=== PATIENT | male | born 1970 | race Caucasian/White ===

== ENCOUNTER 2018-08-23 18:56 | Emergency (ER) | payer OTHER ==
[~2018-08-23] VITALS: Ht 175.3 cm; Wt 63.5 kg
--- NOTE | 2018-08-23 19:18 | ED Psychosocial ---
General Chief Complaint: Substance Abuse Stated Complaint: HEALTH EVAL Source: patient Exam Limitations: intoxication History of Present Illness Date Seen by Provider: August 23, 2018 Time Seen by Provider: 19:02 Initial Comments 48 yo M presenting with law enforcement for clearance for incarceration. He is under the influence of alcohol and had breathalyzer level of .272 for them. He had no medical complaints. He was anxious and nervous about being in custody. He had no other concerns. He was reversed about his poor dentition. He was also embarrassed about being here with alcohol on board. He denies having any fever or chills. He had no chest pain. He said he felt like he was short of breath and like he was having a need to move because he was anxious from being in custody. Allergies and Home Medications Allergies Coded Allergies: No Known Drug Allergies (Unverified , 08/23/18) Patient Home Medication List Home Medication List Reviewed: Yes Review of Systems Constitutional: no symptoms reported EENTM: see HPI (poor dentition) Respiratory: see HPI Cardiovascular: see HPI Gastrointestinal: no symptoms reported Genitourinary: no symptoms reported Musculoskeletal: no symptoms reported Skin: no symptoms reported Psychiatric/Neurological: Anxiety Past Iiehqrj-Foyemp-Txjzvx Hx Past Med/Social Hx: Reviewed Nursing Past Med/Soc Hx Patient Social History Recent Foreign Travel: No Contact w/Someone Who Travel: No Physical Exam Vital Signs - First Documented 08/23/18 19:01 Temp 98.4 Pulse 92 Resp 18 B/P (MAP) 128/71 (90) Pulse Ox 96 O2 Delivery Room Air Capillary Refill : Height, Weight, BMI Height: '" Weight: lbs. oz. kg; BMI Method: General Appearance: WD/WN, no apparent distress, other (anxious. poor dentition. rambling speech.) HEENT: PERRL/EOMI, other (widespread poor dentition) Neck: non-tender, full range of motion, supple Respiratory: chest non-tender, lungs clear, normal breath sounds, no respiratory distress, no accessory muscle use Cardiovascular: normal peripheral pulses, regular rate, rhythm Gastrointestinal: normal bowel sounds, soft, no pulsatile mass Extremities: normal range of motion, non-tender, normal inspection, normal capillary refill Neurologic/Psychiatric: alert, oriented x 3 Skin: normal color, warm/dry Progress/Results/Core Measures Results/Orders Vital Signs/I&O 08/23/18 08/23/18 19:01 19:24 Temp 98.4 98.4 Pulse 92 92 Resp 18 18 B/P (MAP) 128/71 (90) 128/71 (90) Pulse Ox 96 96 O2 Delivery Room Air Room Air Progress Progress Note : Progress Note Hemodynamically stable and no acute significant abnormality on exam. pt admits to alcohol use and does appear intoxicated. He has no acute medical complaints. Appears medically stable to go with law enforcement for incarceration Departure Impression Primary Impression: Alcohol intoxication Qualified Codes: F10.920 - Alcohol use, unspecified with intoxication, uncomplicated Additional Impression: Medical clearance for incarceration Disposition: HOME, SELF-CARE Condition: Stable Departure-Patient Inst. Decision time for Depature: 19:18 Referrals: NO,LOCAL PHYSICIAN (PCP) Primary Care Physician Patient Instructions: ALCOHOL AND SUBSTANCE ABUSE, Alcohol Abuse and Alcoholism (DC), Effects of Alcohol on Your Health Add. Discharge Instructions: Patient is medically stable to go with law enforcement for incarceration. Stop drinking and avoid drug use Establish care with clinic such as [facility] and they can help you with getting clean and healthy All discharge instructions reviewed with patient and/or family. Voiced understanding. VANNESSA JANG MD August 23, 2018 19:18
[2018-08-23 19:24] VITALS: BP 128/71
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
== END 2018-08-23 19:24 | disposition home or self-care (01) ==
LOC: ER FS 18:58
DX: F10.129 Alcohol abuse with intoxication, unspecified (principal); F41.9 Anxiety disorder, unspecified
CPT/HCPCS: 99283

== ENCOUNTER 2018-12-01 11:21 | Inpatient (IN) | payer SELFPAY ==
[~2018-12-01] VITALS: Ht 175.3 cm; Wt 66.9 kg
[2018-12-01] VITALS (10 sets, daily range): BP systolic 129–140; BP diastolic 83–101
[2018-12-01] MEDS ORDERED: NS IV 1000 ML 1,000 ML IV SCH (11:35)
[2018-12-01] MEDS ORDERED: NS IV 500 ML 500 ML IV ONE (11:35)
[2018-12-01] MEDS ORDERED: LORazepam 0.5 MG (ATIVAN) TABLET PO STA (11:35)
[2018-12-01] MEDS ORDERED: LORazepam INJ 2 MG/ML (ATIVAN) VIAL IVP ONE ×3 (11:45→13:15)
[2018-12-01] MEDS ORDERED: FOLIC ACID 1 MG TAB PO ONE (11:45)
[2018-12-01] MEDS ORDERED: THIAMINE 100 MG (VITAMIN B-1) TAB PO ONE (11:45)
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
[2018-12-01 12:07] LABS: BASOPHILS % (AUTO) 0 % (0-10); EOSINOPHILS % (AUTO) 0 % (0-10); HEMATOCRIT 45 % (40-54); HEMOGLOBIN 15.8 G/DL (13.3-17.7); LYMPHOCYTES # (AUTO) 1.4 X 10^3 (1.0-4.0); LYMPHOCYTES % (AUTO) 13 % (12-44); MEAN CORPUSCULAR HEMOGLOBIN 33 PG (25-34); MEAN CORPUSCULAR HGB CONC 35 G/DL (32-36); MEAN CORPUSCULAR VOLUME 94 FL (80-99); MEAN PLATELET VOLUME 9.6 FL (7.4-10.4); MONOCYTES # (AUTO) 0.4 X 10^3 (0.0-1.0); MONOCYTES % (AUTO) 4 % (0-12); NEUTROPHILS % (AUTO) 83 % (42-75); PLATELET COUNT 221 10^3/uL (130-400); RED CELL DISTRIBUTION WIDTH 12.9 % (10.0-14.5); WHITE BLOOD COUNT 10.8 10^3/uL (4.3-11.0)
[2018-12-01 12:24] LABS: BUN/CREATININE RATIO 8; CARBON DIOXIDE 12 MMOL/L (21-32); CHLORIDE 93 MMOL/L (98-107); CREATININE SERUM 1.01 MG/DL (0.60-1.30); GFR ESTIMATED > 60; POTASSIUM 3.3 MMOL/L (3.6-5.0); SODIUM 141 MMOL/L (135-145)
[2018-12-01 12:25] LABS: ACETAMINOPHEN < 10 UG/ML (10-30); ALANINE AMINOTRANSFERASE 24 U/L (0-55); ALKALINE PHOSPHATASE 88 U/L (40-136); BILIRUBIN,TOTAL 0.5 MG/DL (0.1-1.0); CALCIUM 9.4 MG/DL (8.5-10.1); GLUCOSE 153 MG/DL (70-105); SALICYLATE < 5.0 MG/DL (5.0-20.0)
--- NOTE | 2018-12-01 12:25 | NUR ---
Spoke with poison control to report that patient states he took approximately 70 benadryl last night at 2200. Poison control instructed to get EKG and labs, if QRS is >100 give sodium bicarb. Give benzos to keep patient calm. Poison control states symptoms from benadryl can last for 24-48 hours. Will call back in 2 hours to check on patient and will fax benadryl overdose protocol.
[2018-12-01] MEDS ORDERED: ZIPRASIDONE 20 MG INJ (GEODON) VIAL IM ONE (12:30)
--- NOTE | 2018-12-01 12:30 | Diagnostic Imaging Report ---
PROCEDURE: CT head and CT cervical spine without contrast. TECHNIQUE: Multiple contiguous axial images were obtained through the brain and cervical spine without the use of intravenous contrast. Sagittal and coronal reformations through the cervical spine were then performed. Auto Exposure Controls were utilized during the CT exam to meet ALARA standards for radiation dose reduction. INDICATION: Altercation. COMPARISON: No prior studies are available for comparison. CT head: FINDINGS: Study is compromised by motion artifact. Ventricles and sulci appear within normal limits. No sulcal effacement or midline shift is seen. No acute intra-axial or extra-axial hemorrhage is detected. Cisterns are patent. Visualized paranasal sinuses are clear. IMPRESSION: No acute intracranial process is detected. CT cervical spine: FINDINGS: Curvature and alignment is normal. Prevertebral tissues are within normal limits. No fracture or subluxation is seen. The odontoid is intact. IMPRESSION: No acute bony abnormality is detected. Dictated by: Dictated on workstation # [id number]
[2018-12-01 12:56] LABS: CLARITY,URINE CLEAR; COLOR,URINE YELLOW
[2018-12-01 12:57] LABS: BACTERIA,URINE FEW /HPF; BILIRUBIN,URINE NEGATIVE (NEGATIVE); GLUCOSE, URINE (UA) NEGATIVE (NEGATIVE); KETONES,URINE TRACE (NEGATIVE); LEUKOCYTE ESTERASE ,URINE NEGATIVE (NEGATIVE); NITRITE,URINE NEGATIVE (NEGATIVE); PROTEIN,URINE 2+ (NEGATIVE)
[2018-12-01 12:58] LABS: AMORPHOUS SEDIMENT,UR MOD AMOR URATES /LPF
[2018-12-01 13:00] LABS: AMPHETAMINE SCREEN, URINE NEGATIVE (NEGATIVE); BARBITURATE SCREEN URINE NEGATIVE (NEGATIVE); BENZODIAZEPINES SCREEN URINE NEGATIVE (NEGATIVE); CANNABINOID SCREEN, URINE POSITIVE (NEGATIVE); COCAINE SCREEN URINE NEGATIVE (NEGATIVE); METHADONE STAT NEGATIVE (NEGATIVE); METHAMPHETAMINE SCREEN URINE S NEGATIVE (NEGATIVE); OPIATE SCREEN URINE NEGATIVE (NEGATIVE); OXYCODONE STAT NEGATIVE (NEGATIVE); PROPOXYPHENE STAT NEGATIVE (NEGATIVE); TRICYCLIC ANTIDEPRESSANTS SCRE POSITIVE (NEGATIVE)
--- NOTE | 2018-12-01 13:47 | NUR ---
Called dispatch to page out ambulance transfer to [facility] at this time.
--- NOTE | 2018-12-01 14:11 | NUR ---
Called and updated Arianna at poison control center that patient is being admitted at [facility] to the ICU room 7.
[2018-12-01] MEDS ORDERED: 1/2 NS IV SOLUTION 1,000 ML IV PRN (15:07)
[2018-12-01] MEDS ORDERED: LORazepam INJ 2 MG/ML (ATIVAN) VIAL IV PRN ×2 (15:15)
[2018-12-01] MEDS ORDERED: ONDANSETRON 4 MG (ZOFRAN) ORAL DISSOLVE TAB SL PRN (15:15)
[2018-12-01] MEDS ORDERED: LORazepam 1 MG (ATIVAN) TAB PO PRN (15:15)
[2018-12-01] MEDS ORDERED: LORazepam INJ 2 MG/ML (ATIVAN) VIAL IM/IV PRN (15:15)
[2018-12-01] MEDS ORDERED: ANTACID SUSP 30 ML UDC (MYLANTA) PO PRN (15:15)
[2018-12-01] MEDS ORDERED: ONDANSETRON 4 MG/2 ML (SDV) Z0FRAN IV PRN ×2 (15:15)
[2018-12-01] MEDS ORDERED: SENNA W/DOCUSATE (SENOKOT S) TABLET PO PRN (15:15)
--- NOTE | 2018-12-01 15:41 | NUR ---
pt will not leave End tidal CO2 monitor on. Pt agitated and picking at all cords and wires trying to pull them off. Pt is connected to bedside monitor and is leaving those alone as we were able to hide those under gown.
--- NOTE | 2018-12-01 15:57 | NUR ---
UNABLE TO SPEAK WITH THE PATIENT ABOUT MEDICATIONS AT THIS TIME. THERE IS NO INFORMATION ON THE EXT MED HX AND WHEN I SEARCHED FOR RECORDS IN [facility] NO PATIENT WAS FOUND WITH THE SEARCH CRITERIA. SET PROFILE TO UNABLE TO OBTAIN MEDICATION HISTORY AT THIS TIME.
[2018-12-01] MEDS: MULTIVIT W/MINERALS TAB (THERAGRAN M) PO SCH (16:01)
[2018-12-01] MEDS: 1/2 NS W/KCL 20 MEQ/L 1,000 ML IV SCH ×2 (16:09→23:42)
--- NOTE | 2018-12-01 16:15 | NUR ---
LALO CALDERÓN admitted to room CU7-1, with an admitting diagnosis of OD, on 12/01/18 from AM via EMS, accompanied by staff.LALO CALDERÓN introduced to surroundings, call light, bed controls, phone, TV, temperature control, lights, meal times, smoking policy, visitor policy, side rail policy, bathrooms and showers. Patient Rights given to patient in the handbook. LALO CALDERÓN verbalizes understanding that [facility] is not responsible for the loss or damage to any personal effects or valuables that are kept in the patients posession during their hospitalization. The following Patient Care Plans were discussed with the pt: Discharge Planning. LALO CALDERÓN verbalizes understanding of Interdisciplinary Patient Education. Patient and/or family were informed about the Rapid Response Team and its purpose. Pt unable to understand instructions or education.
--- NOTE | 2018-12-01 16:20 | NUR ---
Spoke with Poison Control who stated that pt should be getting 2-4 mg ativan q 15 minutes prn for agitation. Otherwise pt could develop rabdo and start having seizures per the Benadryl OD protocol. This RN called Dr. Farooq who stated to follow the Poison Control recommendations and give the 2-4mg q15M PRN. stated to continue to do CIWA scoring but not give the CIWA Ativan orders. Follow the Poison control orders. CIWA ativan orders discontinued at this time to not cause confusion. Will restart if needed in the future per the physician orders.
[2018-12-01] MEDS: LORazepam INJ 2 MG/ML (ATIVAN) VIAL IVP PRN (17:25)
[2018-12-01] MEDS ORDERED: DEXMEDETOMIDINE INJECTION 1,000 MCG in NS (IVPB) 240 ML IV SCH (17:30)
[2018-12-01] MEDS ORDERED: NS IV 1000 ML 1,000 ML ONE (23:12)
[2018-12-01] MEDS ORDERED: NS IV 1000 ML 1,000 ML IV ONE (23:30)
[2018-12-01] MEDS ORDERED: ATROPINE INJ 0.4 MG/ML SDV ONE (23:40)
[2018-12-02] VITALS (24 sets, daily range): BP systolic 104–144; BP diastolic 59–95
[2018-12-02 00:04] LABS: BUN/CREATININE RATIO 7; CALCIUM 8.2 MG/DL (8.5-10.1); CARBON DIOXIDE 19 MMOL/L (21-32); CHLORIDE 108 MMOL/L (98-107); CREATININE SERUM 0.96 MG/DL (0.60-1.30); GFR ESTIMATED > 60; GLUCOSE 81 MG/DL (70-105); POTASSIUM 5.2 MMOL/L (3.6-5.0); SODIUM 142 MMOL/L (135-145)
[2018-12-02] MEDS ORDERED: SODIUM BICARB 8.4% 50 MEQ/50 ML VIAL ONE ×2 (00:19→00:20)
[2018-12-02] MEDS ORDERED: hydrALAZINE (APESOLINE) 20 MG/ML VIAL ONE (00:19)
[2018-12-02] MEDS ORDERED: SODIUM BICARBONATE 8.4% VIAL 75 MEQ in 1/2 NS IV SOLUTION 1,000 ML IV SCH (00:45)
[2018-12-02] MEDS ORDERED: SODIUM BICARB 8.4% 50 MEQ/50 ML (ABBOTT) SYR IV ONE (00:45)
[2018-12-02] MEDS ORDERED: hydrALAZINE (APESOLINE) 20 MG/ML VIAL IV ONE (00:45)
[2018-12-02 00:52] LABS: CREATINE KINASE 82835 U/L (30-200)
--- NOTE | 2018-12-02 01:00 | NUR ---
2250: PT HAS ONLY HAD 50 ML OF URINE OUTPUT SINCE START OF MY SHIFT AT 7 PM. PT'S HEART RATE SUSTAINING IN THE LOW 40'S AT THIS TIME. PRECEDEX DRIP SHUT OFF AND E-ICU NOTIFIED. 2317: NEW ORDERS RECEIVED FROM E-ICU; 1 L NS BOLUS, 12 LEAD ECG AND STAT LABS: BMP, MAG, IONIZED CALCIUM, LACTATE, TROPONIN, TOTAL CPK. 2340: PT'S HEART RATE SUSTAINING IN THE 30'S AT THIS TIME. E-ICU NOTIFIED. 0010: LAB RESULTS BACK. E-ICU NOTIFIED AND EKG FAXED. THIS RN REPORTED PT'S HEART RATE STILL SUSTAINING IN THE 30'S. 0020: NEW ORDERS RECEIVED FROM E-ICU. SEE ORDER HISTORY.
[2018-12-02 03:29] LABS: BASOPHILS % (AUTO) 0 % (0-10); EOSINOPHILS # (AUTO) 0.1 10^3/uL (0.0-0.3); EOSINOPHILS % (AUTO) 1 % (0-10); HEMATOCRIT 41 % (40-54); LYMPHOCYTES # (AUTO) 1.7 X 10^3 (1.0-4.0); LYMPHOCYTES % (AUTO) 33 % (12-44); MEAN CORPUSCULAR HEMOGLOBIN 32 PG (25-34); MEAN CORPUSCULAR HGB CONC 34 G/DL (32-36); MEAN CORPUSCULAR VOLUME 94 FL (80-99); MEAN PLATELET VOLUME 9.7 FL (7.4-10.4); MONOCYTES # (AUTO) 0.3 X 10^3 (0.0-1.0); MONOCYTES % (AUTO) 5 % (0-12); NEUTROPHILS # (AUTO) 3.2 X 10^3 (1.8-7.8); NEUTROPHILS % (AUTO) 60 % (42-75); PLATELET COUNT 144 10^3/uL (130-400); RED CELL DISTRIBUTION WIDTH 13.2 % (10.0-14.5); WHITE BLOOD COUNT 5.2 10^3/uL (4.3-11.0)
[2018-12-02 03:50] LABS: BUN/CREATININE RATIO 10; CALCIUM 8.5 MG/DL (8.5-10.1); CARBON DIOXIDE 21 MMOL/L (21-32); CHLORIDE 106 MMOL/L (98-107); CREATININE SERUM 0.83 MG/DL (0.60-1.30); GFR ESTIMATED > 60; GLUCOSE 70 MG/DL (70-105); MAGNESIUM 1.8 MG/DL (1.6-2.4); PHOSPHORUS 2.4 MG/DL (2.3-4.7); POTASSIUM 3.6 MMOL/L (3.6-5.0); SODIUM 144 MMOL/L (135-145)
[2018-12-02] MEDS: LORazepam INJ 2 MG/ML (ATIVAN) VIAL IVP PRN ×4 (04:02→21:22)
[2018-12-02 04:19] LABS: CREATINE KINASE 82734 U/L (30-200)
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
--- NOTE | 2018-12-02 07:47 | Diagnostic Imaging Report ---
INDICATION: Dyspnea. COMPARISON: None FINDINGS: Single frontal view of the chest demonstrates normal heart size and pulmonary vascularity. The lungs are well aerated and clear. No large pleural effusion or pneumothorax is seen. The visualized osseous structures show no acute abnormalities. IMPRESSION: 1. No acute cardiopulmonary process. Dictated by: Dictated on workstation # [id number]
[2018-12-02] MEDS: THIAMINE 100 MG (VITAMIN B-1) TAB PO SCH (08:12)
[2018-12-02] MEDS: D5 LR IV SOLUTION 1,000 ML IV SCH ×4 (08:13→20:11)
[2018-12-02] MEDS: MULTIVIT W/MINERALS TAB (THERAGRAN M) PO SCH (08:13)
[2018-12-02] MEDS: FOLIC ACID 1 MG TAB PO SCH (08:13)
[2018-12-02] MEDS ORDERED: LACTATED RINGERS 1,000 ML IV SCH (08:45)
[2018-12-02 09:15] LABS: ABG BASE EXCESS 0.5 MMOL/L (-2.5-2.5); ABG OXYGEN SATURATION 100 % (94-100); ABG PCO2 28 MMHG (35-45); ABG PH 7.53 (7.37-7.43); ABG PO2 140 MMHG (79-93); ABG TCO2 23.9 MMOL/L (21.0-31.0)
[2018-12-02 09:18] LABS: ALLENS TEST YES-POS
[2018-12-02 09:19] LABS: INSPIRED O2 ROOM AIR; PATIENT TEMP 98.6; VENTILATOR YES
[2018-12-02 13:29] LABS: BASOPHILS % (AUTO) 0 % (0-10); EOSINOPHILS # (AUTO) 0.1 10^3/uL (0.0-0.3); EOSINOPHILS % (AUTO) 1 % (0-10); HEMATOCRIT 37 % (40-54); HEMOGLOBIN 12.5 G/DL (13.3-17.7); LYMPHOCYTES # (AUTO) 2.1 X 10^3 (1.0-4.0); LYMPHOCYTES % (AUTO) 43 % (12-44); MEAN CORPUSCULAR HEMOGLOBIN 32 PG (25-34); MEAN CORPUSCULAR HGB CONC 34 G/DL (32-36); MEAN CORPUSCULAR VOLUME 95 FL (80-99); MONOCYTES # (AUTO) 0.3 X 10^3 (0.0-1.0); MONOCYTES % (AUTO) 7 % (0-12); NEUTROPHILS # (AUTO) 2.4 X 10^3 (1.8-7.8); NEUTROPHILS % (AUTO) 49 % (42-75); PLATELET COUNT 118 10^3/uL (130-400); RED CELL DISTRIBUTION WIDTH 12.9 % (10.0-14.5); WHITE BLOOD COUNT 4.9 10^3/uL (4.3-11.0)
[2018-12-02 13:41] LABS: ALANINE AMINOTRANSFERASE 133 U/L (0-55); ALBUMIN 3.2 GM/DL (3.2-4.5); ALKALINE PHOSPHATASE 61 U/L (40-136); BUN/CREATININE RATIO 9; CALCIUM 8.4 MG/DL (8.5-10.1); CARBON DIOXIDE 20 MMOL/L (21-32); CHLORIDE 107 MMOL/L (98-107); CREATININE SERUM 0.79 MG/DL (0.60-1.30); GFR ESTIMATED > 60; GLUCOSE 132 MG/DL (70-105); MAGNESIUM 1.7 MG/DL (1.6-2.4); PHOSPHORUS 2.7 MG/DL (2.3-4.7); POTASSIUM 3.5 MMOL/L (3.6-5.0); SODIUM 141 MMOL/L (135-145); TOTAL PROTEIN 5.2 GM/DL (6.4-8.2)
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
[2018-12-02] MEDS: NICOTINE 21 MG (NICODERM) PATCH TD SCH (14:31)
--- NOTE | 2018-12-02 16:00 | NUR ---
Dr. Demarco and LANDON notified of pt's 1300 lab results
[2018-12-02] MEDS: POTASSIUM CL 10MEQ/50ML IVPB 50 ML IV SCH ×4 (16:26→21:22)
[2018-12-03] VITALS (15 sets, daily range): BP systolic 123–175; BP diastolic 63–106
[2018-12-03] MEDS: D5 LR IV SOLUTION 1,000 ML IV SCH ×5 (01:45→21:23)
[2018-12-03] MEDS: LORazepam INJ 2 MG/ML (ATIVAN) VIAL IVP PRN ×3 (03:32→19:18)
[2018-12-03 03:59] LABS: BASOPHILS % (AUTO) 0 % (0-10); EOSINOPHILS # (AUTO) 0.1 10^3/uL (0.0-0.3); EOSINOPHILS % (AUTO) 2 % (0-10); HEMATOCRIT 40 % (40-54); HEMOGLOBIN 13.5 G/DL (13.3-17.7); LYMPHOCYTES # (AUTO) 3.1 X 10^3 (1.0-4.0); LYMPHOCYTES % (AUTO) 47 % (12-44); MEAN CORPUSCULAR HEMOGLOBIN 32 PG (25-34); MEAN CORPUSCULAR HGB CONC 33 G/DL (32-36); MEAN CORPUSCULAR VOLUME 95 FL (80-99); MEAN PLATELET VOLUME 10.3 FL (7.4-10.4); MONOCYTES # (AUTO) 0.5 X 10^3 (0.0-1.0); MONOCYTES % (AUTO) 7 % (0-12); NEUTROPHILS # (AUTO) 2.9 X 10^3 (1.8-7.8); NEUTROPHILS % (AUTO) 44 % (42-75); PLATELET COUNT 132 10^3/uL (130-400); WHITE BLOOD COUNT 6.6 10^3/uL (4.3-11.0)
[2018-12-03 04:24] LABS: BUN/CREATININE RATIO 8; CALCIUM 8.7 MG/DL (8.5-10.1); CARBON DIOXIDE 22 MMOL/L (21-32); CHLORIDE 107 MMOL/L (98-107); CREATININE SERUM 0.78 MG/DL (0.60-1.30); GFR ESTIMATED > 60; GLUCOSE 126 MG/DL (70-105); MAGNESIUM 1.2 MG/DL (1.6-2.4); PHOSPHORUS 3.8 MG/DL (2.3-4.7); POTASSIUM 4.1 MMOL/L (3.6-5.0); SODIUM 140 MMOL/L (135-145)
[2018-12-03] MEDS: POTASSIUM CL 10MEQ/50ML IVPB 50 ML IV SCH (04:50)
[2018-12-03] MEDS: KCL 20 MEQ TAB (K-DUR) PO SCH (04:50)
[2018-12-03] MEDS: THIAMINE 100 MG (VITAMIN B-1) TAB PO SCH (05:06)
[2018-12-03] MEDS: MAGNESIUM 1 GM/100 ML IVPB 100 ML IV SCH ×5 (05:06→07:05)
[2018-12-03] MEDS: FOLIC ACID 1 MG TAB PO SCH (05:06)
[2018-12-03] MEDS: MULTIVIT W/MINERALS TAB (THERAGRAN M) PO SCH (05:06)
[2018-12-03 05:08] LABS: CREATINE KINASE 44319 U/L (30-200)
--- NOTE | 2018-12-03 07:28 | Pulmonary Progress Note ---
Subjective Time Seen by a Provider: 07:36 Subjective/Events-last exam No complications noted Sepsis Event Evaluation Height, Weight, BMI Height: 5'9.00" Weight: 139lbs. 2.0oz. 63.372952dd; 21.4 BMI Method:Stated Focused Exam Lactate Level 12/01/18 23:40: Lactic Acid Level 1.21 Exam Exam Vital Signs Date Time Temp Pulse Resp B/P (MAP) Pulse Ox O2 Delivery O2 Flow Rate FiO2 12/03/18 06:00 62 19 130/69 (89) 96 Room Air 12/03/18 05:00 58 18 123/63 (83) 97 Room Air 12/03/18 04:00 98 Room Air 12/03/18 04:00 74 18 161/94 (116) 100 Room Air 12/03/18 03:00 54 18 134/69 (90) 97 Room Air 12/03/18 02:00 57 19 125/66 (85) 96 Room Air 12/03/18 01:00 60 12/03/18 01:00 59 20 127/64 (85) 96 Room Air 12/03/18 00:00 96 Room Air 12/03/18 00:00 98.7 12/03/18 00:00 54 24 143/79 (100) 98 Room Air 12/02/18 23:25 12/02/18 23:00 68 17 141/79 (99) 98 Room Air 12/02/18 22:00 89 23 129/83 (98) 99 Room Air 12/02/18 21:00 78 18 118/59 (78) 99 Room Air 12/02/18 20:00 99.7 12/02/18 20:00 77 22 118/71 (87) 99 Room Air 12/02/18 20:00 97 Room Air 12/02/18 19:00 71 20 124/85 (98) 100 Room Air 12/02/18 19:00 71 12/02/18 18:00 70 14 134/93 (107) 100 Room Air 12/02/18 17:00 75 20 109/74 (86) 99 Room Air 12/02/18 16:00 98.7 12/02/18 16:00 55 17 124/76 (92) 100 Room Air 12/02/18 15:10 98 Room Air 12/02/18 15:00 60 13 108/59 (75) 99 Room Air 12/02/18 14:00 79 12 105/68 (80) Room Air 12/02/18 13:00 50 14 120/81 (94) 99 Room Air 12/02/18 12:25 52 12/02/18 12:00 98 Room Air 12/02/18 12:00 53 15 106/71 (83) 95 Room Air 12/02/18 12:00 99.2 12/02/18 11:00 52 43 108/87 (94) 98 Room Air 12/02/18 10:00 59 12 104/83 (90) 96 Room Air 12/02/18 09:00 71 105/65 (78) 98 Room Air 12/02/18 08:00 93 Room Air 12/02/18 08:00 58 32 122/83 (96) 100 Room Air I & O 12/03/18 07:00 Intake Total 4540 ml Output Total 4450 ml Balance 90 ml Height & Weight Height: 5'9.00" Weight: 139lbs. 2.0oz. 63.486880nl; 21.4 BMI Method:Stated General Appearance: No Apparent Distress, Anxious Neck: Full Range of Motion, Normal Inspection, Non Tender, Supple Respiratory: Chest Non Tender, Lungs Clear, Normal Breath Sounds, No Accessory Muscle Use, No Respiratory Distress Cardiovascular: Regular Rate, Rhythm, No Edema, No Gallop, No JVD, No Murmur, Normal Peripheral Pulses Capillary Refill: Less Than 3 Seconds Peripheral Pulses: 2+ Dorsalis Pedis (R), 2+ Left Dors-Pedis (L) Gastrointestinal: normal bowel sounds, non tender, soft Extremity: Normal Capillary Refill, Normal Inspection, Normal Range of Motion, Non Tender, No Calf Tenderness, No Pedal Edema Neurologic/Psychiatric: Alert, Oriented x3 Results Lab Laboratory Tests 12/01/18 11:35 12/01/18 23:40 12/02/18 03:17 12/02/18 13:15 12/03/18 03:23 Assessment/Plan Assessment/Plan Acute OD with Benadryl -Poison control was consulted Rhabdomyolysis -Increase IVF -Give another liter bolus of LR -Repeat Chem at 1300 Hypokalemia -replace Metabolic acidosis -Now resolved -Will change IVF to LR and increase rate to 200 after another liter bolus -Repeat labs at 1300 if C02 on chem is lower restart bicarb gtt. IMELDA KEN DO Dec 03, 2018 07:28
--- NOTE | 2018-12-03 09:21 | Diagnostic Imaging Report ---
INDICATION: Dyspnea. TECHNIQUE: Single view chest at 3:57 AM. CORRELATION STUDY: 12/02/2018 FINDINGS: The heart size, mediastinal configuration and pulmonary vascularity are within normal limits. Slightly increased density in the left lung base and early infiltrate or atelectasis suspect. IMPRESSION: 1. Suspect developing infiltrate or atelectasis in the left lung base. Dictated by: Dictated on workstation # [id number]
[2018-12-03] MEDS: PATCH REMOVAL TP SCH (09:46)
[2018-12-03] MEDS: NICOTINE 21 MG (NICODERM) PATCH TD SCH (09:46)
[2018-12-03] MEDS: ACETAMINOPHEN 500 MG TAB (TYLENOL) PO PRN (11:40)
--- NOTE | 2018-12-03 11:45 | NUR ---
TRANSFERRED FROM ICU PER W/C TO ROOM 424. ALERT AND COOPERATIVE. TREMULOUS ALL OVER AND HAND TREMORS NOTED. SKIN W/D. NO HALLUCINATIONS AT THIS TIME. IV FLUIDS CONT AT 200 CC\HR.
[2018-12-04] VITALS (7 sets, daily range): BP systolic 129–167; BP diastolic 75–92
[2018-12-04] MEDS: D5 LR IV SOLUTION 1,000 ML IV SCH ×5 (02:22→21:59)
[2018-12-04 05:39] LABS: BASOPHILS % (AUTO) 0 % (0-10); EOSINOPHILS # (AUTO) 0.1 10^3/uL (0.0-0.3); EOSINOPHILS % (AUTO) 3 % (0-10); HEMATOCRIT 38 % (40-54); HEMOGLOBIN 12.7 G/DL (13.3-17.7); LYMPHOCYTES # (AUTO) 2.3 X 10^3 (1.0-4.0); LYMPHOCYTES % (AUTO) 45 % (12-44); MEAN CORPUSCULAR HEMOGLOBIN 32 PG (25-34); MEAN CORPUSCULAR HGB CONC 33 G/DL (32-36); MEAN CORPUSCULAR VOLUME 96 FL (80-99); MONOCYTES # (AUTO) 0.4 X 10^3 (0.0-1.0); MONOCYTES % (AUTO) 8 % (0-12); NEUTROPHILS # (AUTO) 2.3 X 10^3 (1.8-7.8); NEUTROPHILS % (AUTO) 44 % (42-75); PLATELET COUNT 119 10^3/uL (130-400); RED CELL DISTRIBUTION WIDTH 12.6 % (10.0-14.5); WHITE BLOOD COUNT 5.1 10^3/uL (4.3-11.0)
[2018-12-04 06:01] LABS: BUN/CREATININE RATIO 4; CALCIUM 8.3 MG/DL (8.5-10.1); CARBON DIOXIDE 24 MMOL/L (21-32); CHLORIDE 107 MMOL/L (98-107); CREATINE KINASE 18859 U/L (30-200); CREATININE SERUM 0.75 MG/DL (0.60-1.30); GFR ESTIMATED > 60; GLUCOSE 113 MG/DL (70-105); MAGNESIUM 1.6 MG/DL (1.6-2.4); POTASSIUM 3.8 MMOL/L (3.6-5.0); SODIUM 141 MMOL/L (135-145)
[2018-12-04] MEDS: FOLIC ACID 1 MG TAB PO SCH (06:01)
[2018-12-04] MEDS: KCL 20 MEQ TAB (K-DUR) PO SCH (06:01)
[2018-12-04] MEDS: MULTIVIT W/MINERALS TAB (THERAGRAN M) PO SCH (06:01)
[2018-12-04] MEDS: THIAMINE 100 MG (VITAMIN B-1) TAB PO SCH (06:01)
[2018-12-04] MEDS: ACETAMINOPHEN 500 MG TAB (TYLENOL) PO PRN ×3 (06:02→19:28)
[2018-12-04] MEDS: POTASSIUM CL 10MEQ/50ML IVPB 50 ML IV SCH (06:04)
[2018-12-04] MEDS: MAGNESIUM 1 GM/100 ML IVPB 100 ML IV SCH (06:14)
--- NOTE | 2018-12-04 07:52 | Diagnostic Imaging Report ---
INDICATION: Dyspnea. EXAMINATION: Chest 12/04/2018. COMPARISON: 12/03/2018. FINDINGS: The cardiomediastinal silhouette is unremarkable. The pulmonary vasculature is within normal limits. The lungs and pleural spaces are clear. IMPRESSION: No evidence of an acute cardiopulmonary process. Dictated by: Dictated on workstation # [id number]
[2018-12-04] MEDS: NICOTINE 21 MG (NICODERM) PATCH TD SCH (09:04)
[2018-12-04] MEDS: PATCH REMOVAL TP SCH (09:05)
--- NOTE | 2018-12-04 09:53 | NUR ---
PATIENT STATES HE DOES NOT TAKE ANY PRESCRIPTION OR OTC MEDS.
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
--- NOTE | 2018-12-04 15:29 | NUR ---
Multiple attempted visit: Pt resting with eyes closed. Skates Operator will visit as needed.
[2018-12-04 15:49] LABS: HEPATITIS C ANTIBODY C Non-Reactive (Non-Reactive)
--- NOTE | 2018-12-04 22:44 | NUR ---
HEART RATE DIPPING INTO 30'S AND STAYING IN 40'S PER TELEMETRY VITAL SIGNS: BP 150/74, HR 41 DR. REDDY NOTIFIED, NEW ORDERS RECEIVED: DECREASE IVF TO 100MLS/HR, MONITOR HEART RATE
[2018-12-05 04:28] VITALS: BP 154/77
[2018-12-05] MEDS: POTASSIUM CL 10MEQ/50ML IVPB 50 ML IV SCH (05:13)
[2018-12-05] MEDS: KCL 20 MEQ TAB (K-DUR) PO SCH (05:14)
[2018-12-05] MEDS: MAGNESIUM 1 GM/100 ML IVPB 100 ML IV SCH (05:14)
[2018-12-05] MEDS: MULTIVIT W/MINERALS TAB (THERAGRAN M) PO SCH (06:07)
[2018-12-05] MEDS: FOLIC ACID 1 MG TAB PO SCH (06:07)
[2018-12-05] MEDS: THIAMINE 100 MG (VITAMIN B-1) TAB PO SCH (06:07)
[2018-12-05] MEDS: D5 LR IV SOLUTION 1,000 ML IV SCH (07:03)
--- NOTE | 2018-12-05 07:41 | Pulmonary Progress Note ---
Subjective Time Seen by a Provider: 07:40 Sepsis Event Evaluation Height, Weight, BMI Height: 5'9.00" Weight: 147lbs. 6.4oz. 66.793803bt; 21.4 BMI Method:Stated Exam Exam Vital Signs Date Time Temp Pulse Resp B/P (MAP) Pulse Ox O2 Delivery O2 Flow Rate FiO2 12/05/18 04:28 97.7 58 18 154/77 (102) Room Air 98.00 12/05/18 01:00 44 12/04/18 23:39 98.3 48 18 129/75 (93) 98 Room Air 12/04/18 20:52 Room Air 12/04/18 20:21 98.8 51 18 166/88 (114) 98 Room Air 12/04/18 19:00 48 12/04/18 16:09 97.5 61 16 151/79 (103) 100 Room Air 12/04/18 12:58 46 12/04/18 12:00 97.0 57 18 167/84 (111) 99 Room Air 12/04/18 08:00 98.8 52 16 155/76 (102) 99 Room Air I & O 12/05/18 07:00 Intake Total 3740 ml Output Total 4200 ml Balance -460 ml Height & Weight Height: 5'9.00" Weight: 147lbs. 6.4oz. 66.695126zr; 21.4 BMI Method:Stated General Appearance: No Apparent Distress, Anxious Neck: Full Range of Motion, Normal Inspection, Non Tender, Supple Respiratory: Chest Non Tender, Lungs Clear, Normal Breath Sounds, No Accessory Muscle Use, No Respiratory Distress Cardiovascular: Regular Rate, Rhythm, No Edema, No Gallop, No JVD, No Murmur, Normal Peripheral Pulses Capillary Refill: Less Than 3 Seconds Peripheral Pulses: 2+ Dorsalis Pedis (R), 2+ Left Dors-Pedis (L) Gastrointestinal: normal bowel sounds, non tender, soft Extremity: Normal Capillary Refill, Normal Inspection, Normal Range of Motion, Non Tender, No Calf Tenderness, No Pedal Edema Neurologic/Psychiatric: Alert, Oriented x3 Results Lab Laboratory Tests 12/04/18 05:30 Assessment/Plan Assessment/Plan Acute OD with Benadryl -Poison control was consulted Liver failure -Repeat labs -D/C Tylenol -Monitor Rhabdomyolysis -IVF -Improving -repeat labs Metabolic acidosis -Now resolved SUELLEN,IMELDA M DO Dec 05, 2018 07:41
[2018-12-05 08:00] VITALS: BP 159/83
[2018-12-05 08:23] LABS: BASOPHILS % (AUTO) 0 % (0-10); EOSINOPHILS # (AUTO) 0.1 10^3/uL (0.0-0.3); EOSINOPHILS % (AUTO) 2 % (0-10); HEMATOCRIT 37 % (40-54); HEMOGLOBIN 12.5 G/DL (13.3-17.7); LYMPHOCYTES # (AUTO) 2.1 X 10^3 (1.0-4.0); LYMPHOCYTES % (AUTO) 44 % (12-44); MEAN CORPUSCULAR HEMOGLOBIN 32 PG (25-34); MEAN CORPUSCULAR HGB CONC 34 G/DL (32-36); MEAN CORPUSCULAR VOLUME 95 FL (80-99); MEAN PLATELET VOLUME 10.5 FL (7.4-10.4); MONOCYTES # (AUTO) 0.4 X 10^3 (0.0-1.0); MONOCYTES % (AUTO) 8 % (0-12); NEUTROPHILS # (AUTO) 2.1 X 10^3 (1.8-7.8); NEUTROPHILS % (AUTO) 46 % (42-75); PLATELET COUNT 143 10^3/uL (130-400); RED CELL DISTRIBUTION WIDTH 12.7 % (10.0-14.5); WHITE BLOOD COUNT 4.7 10^3/uL (4.3-11.0)
[2018-12-05] MEDS: PATCH REMOVAL TP SCH (08:37)
[2018-12-05] MEDS: NICOTINE 21 MG (NICODERM) PATCH TD SCH (08:37)
[2018-12-05 09:04] LABS: ALANINE AMINOTRANSFERASE 102 U/L (0-55); ALBUMIN 3.2 GM/DL (3.2-4.5); ALKALINE PHOSPHATASE 70 U/L (40-136); BILIRUBIN,TOTAL 0.5 MG/DL (0.1-1.0); BUN/CREATININE RATIO 4; CALCIUM 8.6 MG/DL (8.5-10.1); CARBON DIOXIDE 22 MMOL/L (21-32); CHLORIDE 108 MMOL/L (98-107); CREATINE KINASE > 8450 U/L (30-200); CREATININE SERUM 0.74 MG/DL (0.60-1.30); GFR ESTIMATED > 60; GLUCOSE 98 MG/DL (70-105); MAGNESIUM 1.2 MG/DL (1.6-2.4); POTASSIUM 3.9 MMOL/L (3.6-5.0); SODIUM 139 MMOL/L (135-145); TOTAL PROTEIN 5.4 GM/DL (6.4-8.2)
--- NOTE | 2018-12-05 09:50 | Discharge Summary ---
Diagnosis/Chief Complaint Date of Admission Dec 01, 2018 at 13:15 Date of Discharge Discharge Date: Dec 05, 2018 Admission Diagnosis A/P 1. Benadryl overdose with rhabdomyolysis no evidence for kidney injury at this time continue ICU monitoring and fluid resuscitation. 2. Alcohol use disorder monitor for signs of withdrawal. Primary Care No,Local Physician Discharge Diagnosis (1) Intentional diphenhydramine overdose Status: Acute (2) Delirium Status: Acute (3) Alcohol intoxication Status: Acute Discharge Summary Discharge Physical Exam Allergies: Coded Allergies: No Known Drug Allergies (Unverified , 08/23/18) Vitals & I&Os Vital Signs Date Time Temp Pulse Resp B/P (MAP) Pulse Ox O2 Delivery O2 Flow Rate FiO2 12/05/18 08:00 98.3 47 20 159/83 (108) 99 Room Air 12/05/18 04:28 98.00 General Appearance: No Apparent Distress, WD/WN Respiratory: Chest Non Tender, Lungs Clear, Normal Breath Sounds, No Accessory Muscle Use, No Respiratory Distress Cardiovascular: Regular Rate, Rhythm, No Edema, No Gallop, No JVD, No Murmur, Normal Peripheral Pulses Neurologic/Psychiatric: Alert, Oriented x3, No Motor/Sensory Deficits, Normal Mood/Affect Hospital Course Was the Problem List Reviewed?: Yes Hospital course: Pt had an uneventful hospital course for five days after he overdosed on Benadryl, was monitored in the ICU closely, flooded Pt with IV fluids aggressively for rhabdomyolysis and he had no kidney dysfunction even though it was still 8,000 but he was up ad-brooklynn in the room, had no alcohol withdrawal complications an he was deemed stable for discharge and wanted to go home. Pt will need a ride to [place], he lives with his father, declined any alcohol or drug rehab and was not found to be a suicide risk. Labs (last 24 hrs) Laboratory Tests 12/05/18 08:14: White Blood Count 4.7, Red Blood Count 3.89L, Hemoglobin 12.5L, Hematocrit 37L, Mean Corpuscular Volume 95, Mean Corpuscular Hemoglobin 32, Mean Corpuscular Hemoglobin Concent 34, Red Cell Distribution Width 12.7, Platelet Count 143, Mean Platelet Volume 10.5H, Neutrophils (%) (Auto) 46, Lymphocytes (%) (Auto) 44, Monocytes (%) (Auto) 8, Eosinophils (%) (Auto) 2, Basophils (%) (Auto) 0, Neutrophils # (Auto) 2.1, Lymphocytes # (Auto) 2.1, Monocytes # (Auto) 0.4, Eo sinophils # (Auto) 0.1, Basophils # (Auto) 0.0, Sodium Level 139, Potassium Level 3.9, Chloride Level 108H, Carbon Dioxide Level 22, Anion Gap 9, Blood Urea Nitrogen 3L, Creatinine 0.74, Estimat Glomerular Filtration Rate > 60, BUN/Creatinine Ratio 4, Glucose Level 98, Calcium Level 8.6, Corrected Calcium 9.2, Phosphorus Level 4.0, Magnesium Level 1.2L, Total Bilirubin 0.5, Aspartate Amino Transf (AST/SGOT) 251H, Alanine Aminotransferase (ALT/SGPT) 102H, Alkaline Phosphatase 70, Total Creatine Kinase > 8450H, B-Type Natriuretic Peptide 788.1H , Total Protein 5.4L, Albumin 3.2 Microbiology 12/01/18 MRSA Screen - Final, Complete MRSA not isolated Patient resulted labs reviewed. Pending Labs Discussion & Recommendations Discharge Planning: <30 minutes discharge planning Discharge Home Medications: Active Scripts Active No Active Prescriptions or Reported Medications Instructions to patient/family Please see electronic discharge instructions given to patient. Clinical Quality Measures DVT/VTE Risk/Contraindication: Risk Factor Score Per Nursin RFS Level Per Nursing on Admit: 2=Moderate Problem Qualifiers (1) Intentional diphenhydramine overdose: Encounter type: initial encounter Qualified Codes: T45.0X2A - Poisoning by antiallergic and antiemetic drugs, intentional self-harm, initial encounter ZAID REDDY DO Dec 05, 2018 09:49
--- NOTE | 2018-12-05 09:51 | NUR ---
CM/SS discharge planning with the patient. Patient reports that he has been staying with his father in [place] for the last year, before this homeless in [place] for five years. Patient has no transportation and arrived at hospital in only boxers. Able to find an outfit from resource closet on [employer] and will provide a voucher for taxi. Taxi voucher provided to the Patient RN.
--- NOTE | 2018-12-05 10:51 | NUR ---
INSTRUCTIONS GIVEN AND VERBALIZED UNDERSTANDING. SPOKE WITH PT ABOUT HIS DESIRE TO GET HELP AND REVIEWED LAB RESULTS WITH PT HE REQUESTED. APPOINTMENT MADE WITH [facility] IN [place] [place] FOR FOLLOW UP. ALL QUESTIONS ANSWERED. RELAXED AND STATES HE IS READY FOR DISCHARGE. CAB CALLED AND ARRANGEMENTS MADE FOR 1100 DC.
--- NOTE | 2018-12-05 11:01 | NUR ---
DC'D VIA CAB TO HOME.
== END 2018-12-05 11:01 | disposition home or self-care (01) | DRG 918 ==
LOC: EDUNIT# 11:21 → ER FS 11:22 → ICU 13:15 → 4TH 12-03 11:20
PROVIDERS: ADMIT Family Medicine; ATTEND Family Medicine
DX: T45.0X2A Poisoning by antiallergic and antiemetic drugs, intentional self-harm, initial encounter (principal); R44.1 Visual hallucinations; F10.229 Alcohol dependence with intoxication, unspecified; M62.82 Rhabdomyolysis; E87.2 Acidosis; K72.90 Hepatic failure, unspecified without coma; E87.6 Hypokalemia; F17.210 Nicotine dependence, cigarettes, uncomplicated; S50.311A Abrasion of right elbow, initial encounter; S50.312A Abrasion of left elbow, initial encounter; S80.211A Abrasion, right knee, initial encounter; S80.212A Abrasion, left knee, initial encounter; W19.XXXA Unspecified fall, initial encounter; Y92.007 Garden or yard of unspecified non-institutional (private) residence as the place of occurrence of the external cause
CPT/HCPCS: 36415; 36600; 70450; 71045; 72125; 80048; 80053; 80074; 80306; 80320; 80329; 81000; 82330; 82550; 82805; 83605; 83735; 83880; 84100; 84484; 85025; 87081; 93005; 93041; 96361; 96374; 96376

== ENCOUNTER 2019-01-08 18:24 | Emergency (ER) | payer SELFPAY ==
[~2019-01-08] VITALS: Ht 170 cm; Wt 61.0 kg
[2019-01-08] MEDS ORDERED: NS IV 1000 ML 1,000 ML IV STA (18:54)
[2019-01-08] MEDS ORDERED: fentaNYL INJECTION 100 MCG/2 ML AMP IVP STA ×2 (18:54→19:49)
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
[2019-01-08 19:10] LABS: HEMOGLOBIN 15.1 G/DL (13.3-17.7); MEAN CORPUSCULAR HEMOGLOBIN 32 PG (25-34); MEAN CORPUSCULAR HGB CONC 35 G/DL (32-36); MEAN CORPUSCULAR VOLUME 93 FL (80-99); PLATELET COUNT 215 10^3/uL (130-400); RED CELL DISTRIBUTION WIDTH 12.5 % (10.0-14.5); WHITE BLOOD COUNT 8.6 10^3/uL (4.3-11.0)
[2019-01-08 19:11] LABS: BASOPHILS % (AUTO) 0 % (0-10); EOSINOPHILS # (AUTO) 0.1 10^3/uL (0.0-0.3); EOSINOPHILS % (AUTO) 1 % (0-10); HEMATOCRIT 44 % (40-54); LYMPHOCYTES # (AUTO) 2.5 X 10^3 (1.0-4.0); LYMPHOCYTES % (AUTO) 29 % (12-44); MEAN PLATELET VOLUME 9.4 FL (7.4-10.4); MONOCYTES # (AUTO) 0.4 X 10^3 (0.0-1.0); MONOCYTES % (AUTO) 4 % (0-12); NEUTROPHILS # (AUTO) 5.6 X 10^3 (1.8-7.8); NEUTROPHILS % (AUTO) 65 % (42-75)
--- NOTE | 2019-01-08 19:22 | Diagnostic Imaging Report ---
INDICATION: Trauma, left shoulder pain. FINDINGS: Two views of the left shoulder show anterior dislocation of the humeral head. There is a fracture of the greater tuberosity. The scaphoid appears intact on these views. IMPRESSION: Fracture dislocation. Dictated by: Dictated on workstation # [id number]
[2019-01-08 19:37] LABS: BILIRUBIN,TOTAL 0.4 MG/DL (0.1-1.0); BUN/CREATININE RATIO 9; CALCIUM 9.5 MG/DL (8.5-10.1); CARBON DIOXIDE 18 MMOL/L (21-32); CHLORIDE 101 MMOL/L (98-107); CREATININE SERUM 0.86 MG/DL (0.60-1.30); GFR ESTIMATED > 60; GLUCOSE 109 MG/DL (70-105); POTASSIUM 3.5 MMOL/L (3.6-5.0); SODIUM 137 MMOL/L (135-145)
[2019-01-08 19:38] LABS: ALANINE AMINOTRANSFERASE 11 U/L (0-55); ALBUMIN 4.6 GM/DL (3.2-4.5); ALKALINE PHOSPHATASE 88 U/L (40-136); TOTAL PROTEIN 7.6 GM/DL (6.4-8.2)
[2019-01-08] MEDS ORDERED: MIDAZOLAM 5 MG/5 ML (VERSED) VIAL IVP STA (19:49)
--- NOTE | 2019-01-08 20:44 | Diagnostic Imaging Report ---
EXAM: SHOULDER 1 VIEW LEFT INDICATION: Left shoulder dislocation post reduction. COMPARISON: Left shoulder radiographs from earlier today. FINDINGS/IMPRESSION: There has been reduction of the left shoulder dislocation. Left Hill-Sachs fracture appears acute. No bony Bankart is evident on this single view. Dictated by: Dictated on workstation # [id number]
[2019-01-08] MEDS ORDERED: NAPR-1071 PO (21:41)
[2019-01-08 22:36] VITALS: BP 109/73
== END 2019-01-08 22:55 | disposition home or self-care (01) ==
LOC: EDUNIT# 18:24 → ER FS 18:26
DX: S42.252A Displaced fracture of greater tuberosity of left humerus, initial encounter for closed fracture (principal); S43.005A Unspecified dislocation of left shoulder joint, initial encounter; Z77.22 Contact with and (suspected) exposure to environmental tobacco smoke (acute) (chronic); Y04.0XXA Assault by unarmed brawl or fight, initial encounter
CPT/HCPCS: 36415; 73020; 73030; 80053; 80320; 85025; 93041; 96361; 96374

== ENCOUNTER 2020-06-07 12:41 | Emergency (ER) | payer SELFPAY ==
[~2020-06-07] VITALS: Ht 172 cm; Wt 63.0 kg
[~2020-06-07 12:41] MED LIST: NAPR-1071 PO
--- NOTE | 2020-06-07 12:52 | ED Abdominal Pain ---
General Chief Complaint: Abdominal/GI Problems Stated Complaint: UPPER ABD PAIN,N/V History of Present Illness Date Seen by Provider: Jun 07, 2020 Time Seen by Provider: 12:46 Initial Comments 49-year-old male presents with epigastric abdominal pain that radiates a little bit to the right side. Patient reports been going on for about a month. He is elevated nausea. Patient reports about 5 weeks ago he quit drinking where he drank over a 12 pack daily. Patient reports that he thought would get better and it does has not start to get a little bit worse. He denies any fevers or chills. Some occasional diarrhea. No other systemic complaints. Allergies and Home Medications Allergies Coded Allergies: No Known Drug Allergies (Unverified , 08/23/18) Home Medications Naproxen 500 Mg Tablet, 500 MG PO BID PRN for pain Prescribed by: VANNESSA JANG on 01/08/192140 Patient Home Medication List Home Medication List Reviewed: Yes Review of Systems Review of Systems Constitutional: No chills, No fever EENTM: No Symptoms Reported Respiratory: Denies Cough, Denies Shortness of Air Cardiovascular: Denies Chest Pain, Denies Irregular Heart Rate, Denies L ightheadedness Gastrointestinal: See HPI, Abdominal Pain, Nausea Genitourinary: No Symptoms Reported Musculoskeletal: no symptoms reported Skin: no symptoms reported Psychiatric/Neurological: No Symptoms Reported Endocrine: No Symptoms Reported Hematologic/Lymphatic: No Symptoms Reported Past Kdtjvol-Zfvnfc-Thcpnt Hx Past Med/Social Hx: Reviewed Nursing Past Med/Soc Hx Patient Social History Alcohol Beverage of Choice: Beer Drug of Choice: Marijuana Type Used: Cigarettes 2nd Hand Smoke Exposure: Yes Recent Hopitalizations: No Immunizations Up To Date Tetanus Booster (TDap): Unknown Seasonal Allergies Seasonal Allergies: No Past Medical History Surgeries: No Respiratory: No Cardiac: No Neurological: No Genitourinary: No Gastrointestinal: No Musculoskeletal: No Endocrine: No HEENT: No Cancer: No Psychosocial: No Integumentary: No Blood Disorders: No Physical Exam Vital Signs Vital Signs - First Documented 06/07/20 12:54 Temp 36.4 Pulse 95 Resp 18 B/P (MAP) 110/93 (99) Pulse Ox 98 O2 Delivery Room Air Capillary Refill : Height/Weight/BMI Height: 5'9.00" Weight: 147lbs. 6.4oz. 66.663356by; 21.00 BMI Method:Stated General Appearance: no apparent distress HEENT: PERRL/EOMI Neck: full range of motion, supple Respiratory: chest non-tender, lungs clear Cardiovascular: normal peripheral pulses, regular rate, rhythm Gastrointestinal: soft, tenderness (Epigastric) Extremities: normal range of motion Neurologic/Psychiatric: alert, normal mood/affect, oriented x 3 Skin: normal color, warm/dry Progress/Results/Core Measures Results/Orders Lab Results Laboratory Tests Test 06/07/20 12:54 Range/Units White Blood Count 9.4 4.3-11.0 10^3/uL Red Blood Count 4.10 L 4.35-5.85 10^6/uL Hemoglobin 13.6 13.3-17.7 G/DL Hematocrit 40 40-54 % Mean Corpuscular Volume 97 80-99 FL Mean Corpuscular Hemoglobin 33 25-34 PG Mean Corpuscular Hemoglobin Concent 34 32-36 G/DL Red Cell Distribution Width 12.7 10.0-14.5 % Platelet Count 259 130-400 10^3/uL Mean Platelet Volume 10.0 7.4-10.4 FL Immature Granulocyte % (Auto) 0 % Neutrophils (%) (Auto) 63 42-75 % Lymphocytes (%) (Auto) 32 12-44 % Monocytes (%) (Auto) 4 0-12 % Eosinophils (%) (Auto) 1 0-10 % Basophils (%) (Auto) 1 0-10 % Neutrophils # (Auto) 5.9 1.8-7.8 X 10^3 Lymphocytes # (Auto) 3.0 1.0-4.0 X 10^3 Monocytes # (Auto) 0.3 0.0-1.0 X 10^3 Eosinophils # (Auto) 0.1 0.0-0.3 10^3/uL Basophils # (Auto) 0.1 0.0-0.1 10^3/uL Immature Granulocyte # (Auto) 0.0 0.0-0.1 10^3/uL Sodium Level 139 135-145 MMOL/L Potassium Level 3.7 3.6-5.0 MMOL/L Chloride Level 103 98-107 MMOL/L Carbon Dioxide Level 24 21-32 MMOL/L Anion Gap 12 5-14 MMOL/L Blood Urea Nitrogen 4 L 7-18 MG/DL Creatinine 0.82 0.60-1.30 MG/DL Estimat Glomerular Filtration Rate > 60 BUN/Creatinine Ratio 5 Glucose Level 126 H 70-105 MG/DL Calcium Level 8.9 8.5-10.1 MG/DL Corrected Calcium 9.9 8.5-10.1 MG/DL Total Bilirubin 1.7 H 0.1-1.0 MG/DL Aspartate Amino Transf (AST/SGOT) 58 H 5-34 U/L Alanine Aminotransferase (ALT/SGPT) 16 0-55 U/L Alkaline Phosphatase 227 H 40-136 U/L C-Reactive Protein 2.01 H <0.50 MG/DL Total Protein 6.7 6.4-8.2 GM/DL Albumin 2.8 L 3.2-4.5 GM/DL Lipase 15 8-78 U/L My Orders Orders - JOEL ZENG DO Cbc With Automated Diff (06/07/20 12:53) Lipase (06/07/20 12:53) Crp Fs (06/07/20 12:53) Acute Abd Series (06/07/20 12:53) Lidocaine 2% Viscous 15 Ml (Xylocaine Vi (06/07/20 13:00) Antacid Suspension (Mylanta Suspension (06/07/20 13:00) Famotidine Injection (Pepcid Injection) (06/07/20 12:53) Ed Iv/Invasive Line Start (06/07/20 12:53) Comprehensive Metabolic Panel (06/07/20 13:42) Medications Given in ED Current Medications Medications Dose Ordered Sig/Yue Route Start Time Stop Time Status Last Admin Dose Admin Al Hydrox/Mg Hydrox/Simethicone 30 ml ONCE ONCE PO 06/07/20 13:00 06/07/20 13:01 DC 06/07/20 13:03 30 ML Lidocaine HCl 15 ml ONCE ONCE PO 06/07/20 13:00 06/07/20 13:01 DC 06/07/20 13:04 15 ML Vital Signs/I&O 06/07/20 12:54 Temp 36.4 Pulse 95 Resp 18 B/P (MAP) 110/93 (99) Pulse Ox 98 O2 Delivery Room Air Progress Progress Note : Time: 14:18 Progress Note Patient with likely some mild enteritis and gastritis. We will have him start famotidine and omeprazole [id number]-[id number]. Since his abdominal pain is been going on for about a month I will go ahead and treat him with Cipro and Flagyl for the enteritis. We encouraged him to follow-up with [facility] next week to establish care. Patient stable and will be discharged home Diagnostic Imaging Diagonstic Imaging: Xray Plain Films/CT/US/NM/MRI: abdomen Comments [facility]. [place], [place] NAME: LALO CALDERÓN [facility] REC#: [id number] PT STATUS: REG ER : 1970 PHYSICIAN: JOEL ZENG DO ADMIT DATE: 06/07/20/ER FS Draft Date of Exam:06/07/20 ACUTE ABD SERIES INDICATION: Upper abdominal pain for one month. COMPARISON: None. DISCUSSION: AP view of the chest and supine and upright views of the abdomen were obtained. The heart and lungs are normal. No constipation. Thick-walled nondilated small bowel loops are noted, possible enteritis. No pneumatosis or pneumoperitoneum. No pathologic calcification or osseous abnormality. Sclerosis within the humeral heads is concerning for avascular necrosis with some collapse on the left. IMPRESSION: 1. Mild small bowel wall thickening without obstruction. This could be seen with enteritis. 2. 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 Departure Impression Primary Impression: Enteritis Additional Impression: Gastritis Qualified Codes: K29.20 - Alcoholic gastritis without bleeding Disposition: 01 HOME, SELF-CARE Condition: Stable Departure-Patient Inst. Referrals: NO,LOCAL PHYSICIAN (PCP/Family) Primary Care Physician Patient Instructions: [id number], Gastritis ED Add. Discharge Instructions: Famotidine [id number] as directed on package Omeprazole [id number] as directed on package Emergency department focuses on treating and ruling out life-threatening diseases. Whenever possible, a diagnosis is given. However, most patients are given an impression based on their history, physical exam, and workup during your brief time in the ER. Information about probable diagnosis and other educational material has been provided. Please take the time to read and understand this information. It is very important that you follow up with a physician as discussed during the visit today. Failure to adhere to your follow-up instructions may lead to severe disability, injury, or so please make sure to keep your appointments or obtain one as requested. Please keep in mind the emergency department is not designed to your primary care or "family doctor" and nonurgent issues are best evaluated by an outpatient physician All discharge instructions reviewed with patient and/or family. Voiced understanding. Scripts Metronidazole (Metronidazole) 500 Mg Tablet 500 MG PO BID, #14 TAB 0 Refills Prov: JOEL ZENG DO 06/07/20 Ciprofloxacin HCl (Ciprofloxacin HCl) 500 Mg Tablet 500 MG PO BID, #14 TAB Prov: JOEL ZENG DO 06/07/20 JOEL ZENG DO Jun 07, 2020 12:52
[2020-06-07] MEDS ORDERED: FAMOTIDINE 20MG/2ML IV (PEPCID) IV STA (12:53)
[2020-06-07 13:00] LABS: BASOPHILS # (AUTO) 0.1 10^3/uL (0.0-0.1); BASOPHILS % (AUTO) 1 % (0-10); EOSINOPHILS # (AUTO) 0.1 10^3/uL (0.0-0.3); EOSINOPHILS % (AUTO) 1 % (0-10); HEMATOCRIT 40 % (40-54); HEMOGLOBIN 13.6 G/DL (13.3-17.7); LYMPHOCYTES % (AUTO) 32 % (12-44); MEAN CORPUSCULAR HEMOGLOBIN 33 PG (25-34); MEAN CORPUSCULAR HGB CONC 34 G/DL (32-36); MEAN CORPUSCULAR VOLUME 97 FL (80-99); MONOCYTES # (AUTO) 0.3 X 10^3 (0.0-1.0); MONOCYTES % (AUTO) 4 % (0-12); NEUTROPHILS # (AUTO) 5.9 X 10^3 (1.8-7.8); NEUTROPHILS % (AUTO) 63 % (42-75); PLATELET COUNT 259 10^3/uL (130-400); WHITE BLOOD COUNT 9.4 10^3/uL (4.3-11.0)
[2020-06-07] MEDS ORDERED: ANTACID SUSP 30 ML UDC (MYLANTA) PO ONE (13:00)
[2020-06-07] MEDS ORDERED: LIDOCAINE 2% VISCOUS 15 ML UDC PO ONE (13:00)
--- NOTE | 2020-06-07 13:41 | Diagnostic Imaging Report ---
INDICATION: Upper abdominal pain for one month. COMPARISON: None. DISCUSSION: AP view of the chest and supine and upright views of the abdomen were obtained. The heart and lungs are normal. No constipation. Thick-walled nondilated small bowel loops are noted, possible enteritis. No pneumatosis or pneumoperitoneum. No pathologic calcification or osseous abnormality. Sclerosis within the humeral heads is concerning for avascular necrosis with some collapse on the left. IMPRESSION: 1. Mild small bowel wall thickening without obstruction. This could be seen with enteritis. 2. 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 Dictated by: Dictated on workstation # [id number]
[2020-06-07 14:04] LABS: ALKALINE PHOSPHATASE 227 U/L (40-136); BILIRUBIN,TOTAL 1.7 MG/DL (0.1-1.0); BUN/CREATININE RATIO 5; CALCIUM 8.9 MG/DL (8.5-10.1); CARBON DIOXIDE 24 MMOL/L (21-32); CHLORIDE 103 MMOL/L (98-107); CREATININE SERUM 0.82 MG/DL (0.60-1.30); GFR ESTIMATED > 60; GLUCOSE 126 MG/DL (70-105); POTASSIUM 3.7 MMOL/L (3.6-5.0); SODIUM 139 MMOL/L (135-145)
[2020-06-07 14:05] LABS: ALANINE AMINOTRANSFERASE 16 U/L (0-55); ALBUMIN 2.8 GM/DL (3.2-4.5); TOTAL PROTEIN 6.7 GM/DL (6.4-8.2)
[2020-06-07] MEDS ORDERED: CIPR500T5 PO (14:21)
[2020-06-07] MEDS ORDERED: METR-145 PO (14:21)
[2020-06-07 14:29] VITALS: BP 112/82
== END 2020-06-07 14:30 | disposition home or self-care (01) ==
LOC: EDUNIT# 12:41 → ER FS 12:43
DX: K52.9 Noninfective gastroenteritis and colitis, unspecified (principal); K29.70 Gastritis, unspecified, without bleeding; Z77.22 Contact with and (suspected) exposure to environmental tobacco smoke (acute) (chronic)
CPT/HCPCS: 36415; 74022; 80053; 83690; 85025; 86141

== ENCOUNTER 2022-09-25 17:16 | Inpatient (IN) | payer SELFPAY ==
[~2022-09-25] VITALS: Ht 175 cm; Wt 56.4 kg
[~2022-09-25 17:16] MED LIST changes: +CIPR500T5 PO; +METR-145 PO
--- NOTE | 2022-09-25 17:38 | ED Abdominal Pain ---
General Chief Complaint: Abdominal/GI Problems Stated Complaint: ABD PAIN | BLOATING History of Present Illness Date Seen by Provider: Sep 25, 2022 Time Seen by Provider: 17:31 Initial Comments 52-year-old male with PMH of alcohol addiction, is here with complaints of abdominal distention and abdominal pain which has been going on for the past 1 week, and is worsening. Patient states that he drinks approximately 50 ounces of beer every single day. He has drink 50 ounces of beer today morning. Patient states that he has had a half of a roast beef sandwich for lunch. Patient has had nausea all week but today started vomiting. Denies fever and chills, chest pain, palpitations, shortness of breath. Patient does not have a history of heart failure or any other significant past medical history, however patient has not seen his PCP for many years. Patient is not on any medications at this time. Allergies and Home Medications Allergies Coded Allergies: No Known Drug Allergies (Unverified , 08/23/18) Patient Home Medication List Home Medication List Reviewed: Yes Ciprofloxacin HCl (Ciprofloxacin HCl) 500 Mg Tablet, 500 MG PO BID Prescribed by: JOEL ZENG on 06/07/20 1421 Metronidazole (Metronidazole) 500 Mg Tablet, 500 MG PO BID Prescribed by: JOEL ZENG on 06/07/20 1421 Naproxen (Naprosyn) 500 Mg Tablet, 500 MG PO BID PRN for pain Prescribed by: VANNESSA JANG on 01/08/192140 Review of Systems Review of Systems Constitutional: see HPI EENTM: No Symptoms Reported Respiratory: No Symptoms Reported Cardiovascular: No Symptoms Reported Gastrointestinal: Abdomen Distended, Abdominal Pain, Nausea, Poor Fluid Intake, Vomiting Genitourinary: No Symptoms Reported Musculoskeletal: no symptoms reported Skin: no symptoms reported Psychiatric/Neurological: No Symptoms Reported Endocrine: No Symptoms Reported Hematologic/Lymphatic: No Symptoms Reported Past Idgyail-Vkkyrj-Tpmezj Hx Immunizations Up To Date Tetanus Booster (TDap): Unknown Seasonal Allergies Seasonal Allergies: No Past Medical History Surgeries: No Respiratory: No Cardiac: No Neurological: No Genitourinary: No Gastrointestinal: No Musculoskeletal: No Endocrine: No HEENT: No Cancer: No Psychosocial: No Integumentary: No Blood Disorders: No Physical Exam Vital Signs Vital Signs - First Documented 09/25/22 17:30 Temp 36.9 Pulse 104 Resp 16 B/P (MAP) 118/80 (93) Pulse Ox 96 O2 Delivery Room Air Capillary Refill : Height/Weight/BMI Height: 5'9.00" Weight: 147lbs. 6.4oz. 66.518686vo; 21.00 BMI Method:Stated General Appearance: mild distress, thin HEENT: PERRL/EOMI, other (Poor dentition) Neck: non-tender, full range of motion, supple Respiratory: chest non-tender, lungs clear, normal breath sounds, no respiratory distress Cardiovascular: regular rate, rhythm, other (Bilateral pitting pedal edema 2+) Gastrointestinal: distended (Tense abdomen, no shifting dullness), tenderness (And right upper quadrant and periumbilical), other (Distant bowel sounds heard) Extremities: normal range of motion, non-tender, pedal edema Back: no CVA tenderness Neurologic/Psychiatric: crusher screen repairer II-XII nml as tested, no motor/sensory deficits, alert, normal mood/affect, oriented x 3 Skin: pallor Focused Exam Lactate Level 09/25/22 17:50: Lactic Acid Level 3.83*H 09/25/22 19:52: Lactic Acid Level 2.62*H 09/25/22 21:40: Lactic Acid Level 2.29*H Lactic Acid Level Laboratory Tests Test 09/25/22 17:50 09/25/22 19:52 09/25/22 21:40 Lactic Acid Level 3.83 MMOL/L (0.50-2.00) *H 2.62 MMOL/L (0.50-2.00) *H 2.29 MMOL/L (0.50-2.00) *H Progress/Results/Core Measures Results/Orders Lab Results Laboratory Tests Test 09/25/22 17:50 09/25/22 19:52 09/25/22 21:40 Range/Units White Blood Count 10.4 4.3-11.0 10^3/uL Red Blood Count 3.34 L 4.30-5.52 10^6/uL Hemoglobin 7.6 L 13.3-17.7 g/dL Hematocrit 26 L 40-54 % Mean Corpuscular Volume 77 L 80-99 fL Mean Corpuscular Hemoglobin 23 L 25-34 pg Mean Corpuscular Hemoglobin Concent 30 L 32-36 g/dL Red Cell Distribution Width 18.0 H 10.0-14.5 % Platelet Count 276 130-400 10^3/uL Mean Platelet Volume 8.9 L 9.0-12.2 fL Immature Granulocyte % (Auto) 0 % Neutrophils (%) (Auto) 79 H 42-75 % Lymphocytes (%) (Auto) 15 12-44 % Monocytes (%) (Auto) 5 0-12 % Eosinophils (%) (Auto) 0 0-10 % Basophils (%) (Auto) 0 0-10 % Neutrophils # (Auto) 8.3 H 1.8-7.8 10^3/uL Lymphocytes # (Auto) 1.6 1.0-4.0 10^3/uL Monocytes # (Auto) 0.5 0.0-1.0 10^3/uL Eosinophils # (Auto) 0.0 0.0-0.3 10^3/uL Basophils # (Auto) 0.0 0.0-0.1 10^3/uL Immature Granulocyte # (Auto) 0.0 0.0-0.1 10^3/uL Prothrombin Time 15.2 H 12.2-14.7 SEC INR Comment 1.2 0.8-1.4 Activated Partial Thromboplast Time 31 24-35 SEC Sodium Level 129 L 135-145 MMOL/L Potassium Level 3.8 3.6-5.0 MMOL/L Chloride Level 89 L 98-107 MMOL/L Carbon Dioxide Level 18 L 21-32 MMOL/L Anion Gap 22 H 5-14 MMOL/L Blood Urea Nitrogen 4 L 7-18 MG/DL Creatinine 0.46 L 0.60-1.30 MG/DL Estimat Glomerular Filtration Rate 127 BUN/Creatinine Ratio 9 Glucose Level 97 70-105 MG/DL Lactic Acid Level 3.83 *H 2.62 *H 2.29 *H 0.50-2.00 MMOL/L Calcium Level 8.7 8.5-10.1 MG/DL Corrected Calcium 9.3 8.5-10.1 MG/DL Magnesium Level 1.9 1.6-2.4 MG/DL Total Bilirubin 2.4 H 0.1-1.0 MG/DL Aspartate Amino Transf (AST/SGOT) 75 H 5-34 U/L Alanine Aminotransferase (ALT/SGPT) 26 0-55 U/L Alkaline Phosphatase 441 H 40-136 U/L Ammonia 45 H 11-32 UMOL/L Troponin I < 0.30 <0.30 NG/ML Pro-B-Type Natriuretic Peptide 134.6 H <125.0 PG/ML Total Protein 7.6 6.4-8.2 GM/DL Albumin 3.2 3.2-4.5 GM/DL Lipase 27 8-78 U/L Serum Alcohol 156 H <10 MG/DL Urine Color YELLOW Urine Clarity CLEAR Urine pH 7.0 5-9 Urine Specific [place] <=1.005 1.016-1.022 Urine Protein NEGATIVE NEGATIVE Urine Glucose (UA) NEGATIVE NEGATIVE Urine Ketones 1+ H NEGATIVE Urine Nitrite NEGATIVE NEGATIVE Urine Bilirubin NEGATIVE NEGATIVE Urine Urobilinogen 1.0 < = 1.0 MG/DL Urine Leukocyte Esterase NEGATIVE NEGATIVE Urine RBC (Auto) NEGATIVE NEGATIVE Urine RBC NONE /HPF Urine WBC 0-2 /HPF Urine Squamous Epithelial Cells 2-5 /HPF Urine Crystals NONE /LPF Urine Bacteria NEGATIVE /HPF Urine Casts NONE /LPF Urine Mucus SMALL H /LPF Urine Culture Indicated NO Urine Opiates Screen NEGATIVE NEGATIVE Urine Oxycodone Screen NEGATIVE NEGATIVE Urine Methadone Screen NEGATIVE NEGATIVE Urine Propoxyphene Screen NEGATIVE NEGATIVE Urine Barbiturates Screen NEGATIVE NEGATIVE Ur Tricyclic Antidepressants Screen NEGATIVE NEGATIVE Urine Phencyclidine Screen NEGATIVE NEGATIVE Urine Amphetamines Screen NEGATIVE NEGATIVE Urine Methamphetamines Screen NEGATIVE NEGATIVE Urine Benzodiazepines Screen NEGATIVE NEGATIVE Urine Cocaine Screen NEGATIVE NEGATIVE Urine Cannabinoids Screen POSITIVE H NEGATIVE My Orders Orders - LIA MO MD Chest 1 View Ap/Pa Only (09/25/22 17:40) Alcohol (09/25/22 17:41) Cbc With Automated Diff (09/25/22 17:41) Comprehensive Metabolic Panel (09/25/22 17:41) Drug Screen Stat (Urine) (09/25/22 17:41) Lactic Acid Analyzer (09/25/22 17:41) Lipase (09/25/22 17:41) Magnesium (09/25/22 17:41) Protime With Inr (09/25/22 17:41) Partial Thromboplastin Time (09/25/22 17:41) Ua Culture If Indicated (09/25/22 17:41) Probnp Fs (09/25/22 17:41) Troponin I Fs (09/25/22 17:41) Ct Abdomen/Pelvis W (09/25/22 17:43) Ammonia (09/25/22 17:46) Pantoprazole Injection (Protonix Injecti (09/25/22 17:51) Thiamine Injection (Vitamin B-1 Injectio (09/25/22 17:52) Folic Acid Tablet (Folic Acid Tablet) (09/25/22 18:00) Iohexol Injection (Omnipaque 350 Mg/Ml 1 (09/25/22 18:30) Received Contrast (Hold Metformin- Contr (09/25/22 18:30) Ns (Ivpb) (Sodium Chloride 0.9% Ivpb Bag (09/25/22 18:30) Ed Iv/Invasive Line Start (09/25/22 18:32) Ns Iv 1000 Ml (Sodium Chloride 0.9%) (09/25/22 18:32) Cefepime Injection (Maxipime Injection) (09/25/22 18:45) Blood Culture (09/25/22 18:37) Ns Iv 1000 Ml (Sodium Chloride 0.9%) (09/25/22 19:12) Code/Resuscitation (09/25/22 20:43) Ns Iv 1000 Ml (Sodium Chloride 0.9%) (09/25/22 21:30) Ed Admission (Communication) (09/25/22 22:23) Medications Given in ED Current Medications Medications Dose Ordered Sig/Yue Route Start Time Stop Time Status Last Admin Dose Admin Cefepime HCl 1000 mg/Sodium Chloride 50 ml @ 100 mls/hr ONCE ONCE IV 09/25/22 18:45 09/25/22 19:14 DC 09/25/22 18:52 100 MLS/HR Folic Acid 1 mg ONCE ONCE PO 09/25/22 18:00 09/25/22 18:01 DC 09/25/22 18:21 1 MG Iohexol 100 ml ONCE ONCE IV 09/25/22 18:30 09/25/22 18:32 DC 09/25/22 18:39 75 ML Sodium Chloride 100 ml ONCE ONCE IV 09/25/22 18:30 09/25/22 18:32 DC 09/25/22 18:39 100 ML Vital Signs/I&O 09/25/22 09/25/22 09/25/22 17:30 21:25 22:30 Temp 36.9 Pulse 104 105 106 Resp 16 16 24 B/P (MAP) 118/80 (93) 92/60 107/65 (79) Pulse Ox 96 99 96 O2 Delivery Room Air Room Air Room Air 09/26/22 00:00 Intake Total 1101 ml Balance 1101 ml Progress Progress Note : Progress Note 1. ALCOHOLIC LIVER DISEASE/ ASCITES DUE TO ALCOHOLIC CIRRHOSIS/ DEHYDRATION: - CT ABD: 1) Advanced cirrhotic morphology of the liver. Markedly large volume ascites along with upper abdominal varicosities. Spleen size however is normal. 2) Wall thickening of small bowel and colon. May very well be attributed to underlying hepatic enteropathy. No suggestion for obstruction. Gastrointestinal track however is significantly displaced centrally from the ascites. 3) Questionable low density lesion of the pancreatic head. This however may be attributed to the fluid. Attention at short-term follow-up imaging is however recommended for reassessment of this questionable finding. - CBC: WBC is normal with Hb of 7.6 - s. ETOH is 156, AT is elevated at 75 with alk phos of 441 - Thiamine iv/ Folic acid oral given in ER - NS IVF bolus - Cefepime 1gm given in ER due to elevated lactic acid with blood cultures sent when sepsis alert was seen.However, with a normal white count, this elevated lactic acid is likely due to alcoholism causing dehydration which is causing the lactic acid to be elevated. UA is positive for ketones. - Discussed with hospitalist, and accepted for admission. Pt will benefit from ultrasound of RUQ in the morning Diagnostic Imaging Diagonstic Imaging: Xray Plain Films/CT/US/NM/MRI: chest Comments [facility], [facility]. [place], [place] NAME: SUZILALO PICHARDO [facility] REC#: [id number] PT STATUS: REG ER : 1970 PHYSICIAN: LIA MO MD ADMIT DATE: 09/25/22/ER FS Signed Date of Exam:09/25/22 CT ABDOMEN/PELVIS W PROCEDURE: CT abdomen and pelvis with contrast. TECHNIQUE: Multiple contiguous axial images were obtained through the abdomen and pelvis after administration of intravenous contrast. Auto Exposure Controls were utilized during the CT exam to meet ALARA standards for radiation dose reduction. All CT scans use one or more of the following dose optimizing techniques: automated exposure control, MA and/or KvP adjustment based on patient size and exam type or iterative reconstruction. INDICATION: 52-year-old male, long history of alcoholism with distended abdomen, abdominal pain and vomiting x 4 days. Diarrhea daily. CORRELATION STUDY: None. FINDINGS: LOWER THORAX: Trace bilateral pleural effusions, right slightly greater than left. Minimal right basilar atelectasis. Rather diffuse wall thickening of the low esophagus with multiple extensive esophageal varicosities present. LIVER: Small, 12.6 cm in length, heterogeneous and nodular compatible with marked advanced cirrhotic morphology. No definitive focal lesion. GALLBLADDER: Present and generally unremarkable. No bile duct dilatation. SPLEEN: Normal in size, 10 cm. PANCREAS: Fluid in and around the pancreatic head is likely ascites. Pancreas has a generally unremarkable appearance. However, low attenuating lesion of the pancreatic head is not excluded measuring approximately 15 x 8 mm. ADRENAL GLANDS: Unremarkable. KIDNEYS: Normal configuration. No calcification or obstruction. ABDOMINAL AORTA: Mild to moderate atherosclerotic plaque, nonaneurysmal. Major branches patent at their origin; however, there is significant stenosis origin celiac trunk. Upper abdominal varicosities. This includes a small recanalized umbilical vein. Esophageal, gastric and splenic varicosities. Splenic vein, superior mesenteric vein and portal vein patent. GASTROINTESTINAL TRACT: Gastrointestinal track is displaced centrally. No definitive obstruction. Normal appendix present. There are areas of wall thickening of the colon and small bowel. URINARY BLADDER: Unremarkable. REPRODUCTIVE: Unremarkable. OSSEOUS STRUCTURES: More focal degenerative disc disease at the L4-L5 level. Spinal canal foraminal narrowing owing to degenerative change. No acute bony abnormality. OTHER: Massively large volume ascites. Questionable area of nodularity anterior mesentery. IMPRESSION: 1. Advanced cirrhotic morphology of the liver. Markedly large volume ascites along with upper abdominal varicosities. Spleen size however is normal. 2. Wall thickening of small bowel and colon. May very well be attributed to underlying hepatic enteropathy. No suggestion for obstruction. Gastrointestinal track however is significantly displaced centrally from the ascites. 3. Questionable low density lesion of the pancreatic head. This however may be attributed to the fluid. Attention at short-term follow-up imaging is however recommended for reassessment of this questionable finding. Dictated by: Dictated on workstation # [id number] Dict: 09/25/221902 Trans: 09/25/222203 [facility] [id number] Interpreted by: AGA GUZMAN DO Electronically signed by: AGA GUZMAN DO 09/25/222203 [place], [place] NAME: LALO CALDERÓN [facility] REC#: [id number] PT STATUS: REG ER : 1970 PHYSICIAN: LIA MO MD ADMIT DATE: 09/25/22/ER FS Signed Date of Exam:09/25/22 CHEST 1 VIEW AP/PA ONLY INDICATION: Abdominal distention, pain, vomiting x4 days with diarrhea. Cough.. TECHNIQUE: Single view chest 6:45 PM. CORRELATION STUDY: 12/04/2018 FINDINGS: The heart size, mediastinal configuration and pulmonary vascularity are within normal limits. The lungs are clear with no consolidating infiltrate. There is no significant effusion or pneumothorax. IMPRESSION: 1. Negative appearing single view chest. Dictated by: Dictated on workstation # [id number] Dict: 09/25/22 1849 Trans: 09/25/222010 DO [id number] Interpreted by: AGA GUZMAN DO Electronically signed by: AGA GUZMAN DO 09/25/222010 Departure Impression Primary Impression: Alcoholic liver disease Additional Impressions: Alcohol addiction Dehydration Ascites due to alcoholic cirrhosis Disposition: 30 STILL A PATIENT Condition: Stable Departure-Patient Inst. Referrals: NO,LOCAL PHYSICIAN (PCP/Family) Primary Care Physician LIA MO MD Sep 25, 2022 17:38
[2022-09-25] MEDS ORDERED: PANTOPRAZOLE 40 MG (PROTONIX) VIAL IV STA (17:51)
[2022-09-25] MEDS ORDERED: THIAMINE INJECTION 100 MG in NS (IVPB) 50 ML IV STA (17:52)
[2022-09-25] MEDS ORDERED: FOLIC ACID 1 MG TAB PO ONE (18:00)
[2022-09-25 18:01] LABS: BASOPHILS % (AUTO) 0 % (0-10); EOSINOPHILS % (AUTO) 0 % (0-10); HEMATOCRIT 26 % (40-54); HEMOGLOBIN 7.6 g/dL (13.3-17.7); LYMPHOCYTES # (AUTO) 1.6 10^3/uL (1.0-4.0); LYMPHOCYTES % (AUTO) 15 % (12-44); MEAN CORPUSCULAR HEMOGLOBIN 23 pg (25-34); MEAN CORPUSCULAR HGB CONC 30 g/dL (32-36); MEAN CORPUSCULAR VOLUME 77 fL (80-99); MEAN PLATELET VOLUME 8.9 fL (9.0-12.2); MONOCYTES # (AUTO) 0.5 10^3/uL (0.0-1.0); MONOCYTES % (AUTO) 5 % (0-12); NEUTROPHILS # (AUTO) 8.3 10^3/uL (1.8-7.8); NEUTROPHILS % (AUTO) 79 % (42-75); PLATELET COUNT 276 10^3/uL (130-400); WHITE BLOOD COUNT 10.4 10^3/uL (4.3-11.0)
[2022-09-25 18:22] LABS: ALANINE AMINOTRANSFERASE 26 U/L (0-55); ALBUMIN 3.2 GM/DL (3.2-4.5); ALKALINE PHOSPHATASE 441 U/L (40-136); BILIRUBIN,TOTAL 2.4 MG/DL (0.1-1.0); BUN/CREATININE RATIO 9; CALCIUM 8.7 MG/DL (8.5-10.1); CARBON DIOXIDE 18 MMOL/L (21-32); CHLORIDE 89 MMOL/L (98-107); CREATININE SERUM 0.46 MG/DL (0.60-1.30); GFR ESTIMATED 127; GLUCOSE 97 MG/DL (70-105); INR 1.2 (0.8-1.4); LIPASE 27 U/L (8-78); MAGNESIUM 1.9 MG/DL (1.6-2.4); POTASSIUM 3.8 MMOL/L (3.6-5.0); PROTHROMBIN TIME PATIENT 15.2 SEC (12.2-14.7); SODIUM 129 MMOL/L (135-145); TOTAL PROTEIN 7.6 GM/DL (6.4-8.2)
[2022-09-25] MEDS ORDERED: NS 100 ML (IVPB) BAG IV ONE (18:30)
[2022-09-25] MEDS ORDERED: HOLD METFORMIN - RECEIVED CONTRAST 20 ML VIAL IV SCH (18:30)
[2022-09-25] MEDS ORDERED: IOHEXOL 350 MG/ML 100 ML (OMNIPAQUE 350) VIAL IV ONE (18:30)
[2022-09-25] MEDS ORDERED: NS IV 1000 ML 1,000 ML IV STA (18:32)
[2022-09-25] MEDS ORDERED: cefTRIAXone IV/IM 1,000 MG in NS (IVPB) 50 ML IV STA (18:32)
[2022-09-25] MEDS ORDERED: CEFEPIME INJECTION 1,000 MG in NS (IVPB) 50 ML IV ONE (18:45)
--- NOTE | 2022-09-25 18:50 | Diagnostic Imaging Report ---
INDICATION: Abdominal distention, pain, vomiting x4 days with diarrhea. Cough.. TECHNIQUE: Single view chest 6:45 PM. CORRELATION STUDY: 12/04/2018 FINDINGS: The heart size, mediastinal configuration and pulmonary vascularity are within normal limits. The lungs are clear with no consolidating infiltrate. There is no significant effusion or pneumothorax. IMPRESSION: 1. Negative appearing single view chest. Dictated by: Dictated on workstation # [id number]
[2022-09-25] MEDS ORDERED: NS IV 1000 ML 1,000 ML ONE (19:12)
--- NOTE | 2022-09-25 19:21 | Diagnostic Imaging Report ---
PROCEDURE: CT abdomen and pelvis with contrast. TECHNIQUE: Multiple contiguous axial images were obtained through the abdomen and pelvis after administration of intravenous contrast. Auto Exposure Controls were utilized during the CT exam to meet ALARA standards for radiation dose reduction. All CT scans use one or more of the following dose optimizing techniques: automated exposure control, MA and/or KvP adjustment based on patient size and exam type or iterative reconstruction. INDICATION: 52-year-old male, long history of alcoholism with distended abdomen, abdominal pain and vomiting x 4 days. Diarrhea daily. CORRELATION STUDY: None. FINDINGS: LOWER THORAX: Trace bilateral pleural effusions, right slightly greater than left. Minimal right basilar atelectasis. Rather diffuse wall thickening of the low esophagus with multiple extensive esophageal varicosities present. LIVER: Small, 12.6 cm in length, heterogeneous and nodular compatible with marked advanced cirrhotic morphology. No definitive focal lesion. GALLBLADDER: Present and generally unremarkable. No bile duct dilatation. SPLEEN: Normal in size, 10 cm. PANCREAS: Fluid in and around the pancreatic head is likely ascites. Pancreas has a generally unremarkable appearance. However, low attenuating lesion of the pancreatic head is not excluded measuring approximately 15 x 8 mm. ADRENAL GLANDS: Unremarkable. KIDNEYS: Normal configuration. No calcification or obstruction. ABDOMINAL AORTA: Mild to moderate atherosclerotic plaque, nonaneurysmal. Major branches patent at their origin; however, there is significant stenosis origin celiac trunk. Upper abdominal varicosities. This includes a small recanalized umbilical vein. Esophageal, gastric and splenic varicosities. Splenic vein, superior mesenteric vein and portal vein patent. GASTROINTESTINAL TRACT: Gastrointestinal track is displaced centrally. No definitive obstruction. Normal appendix present. There are areas of wall thickening of the colon and small bowel. URINARY BLADDER: Unremarkable. REPRODUCTIVE: Unremarkable. OSSEOUS STRUCTURES: More focal degenerative disc disease at the L4-L5 level. Spinal canal foraminal narrowing owing to degenerative change. No acute bony abnormality. OTHER: Massively large volume ascites. Questionable area of nodularity anterior mesentery. IMPRESSION: 1. Advanced cirrhotic morphology of the liver. Markedly large volume ascites along with upper abdominal varicosities. Spleen size however is normal. 2. Wall thickening of small bowel and colon. May very well be attributed to underlying hepatic enteropathy. No suggestion for obstruction. Gastrointestinal track however is significantly displaced centrally from the ascites. 3. Questionable low density lesion of the pancreatic head. This however may be attributed to the fluid. Attention at short-term follow-up imaging is however recommended for reassessment of this questionable finding. Dictated by: Dictated on workstation # [id number]
[2022-09-25 20:13] LABS: BACTERIA,URINE NEGATIVE /HPF; BILIRUBIN,URINE NEGATIVE (NEGATIVE); CLARITY,URINE CLEAR; COLOR,URINE YELLOW; GLUCOSE, URINE (UA) NEGATIVE (NEGATIVE); KETONES,URINE 1+ (NEGATIVE); LEUKOCYTE ESTERASE ,URINE NEGATIVE (NEGATIVE); NITRITE,URINE NEGATIVE (NEGATIVE); PROTEIN,URINE NEGATIVE (NEGATIVE); WBC,URINE 0-2 /HPF
[2022-09-25 20:16] LABS: AMPHETAMINE SCREEN, URINE NEGATIVE (NEGATIVE); BARBITURATE SCREEN URINE NEGATIVE (NEGATIVE); BENZODIAZEPINES SCREEN URINE NEGATIVE (NEGATIVE); CANNABINOID SCREEN, URINE POSITIVE (NEGATIVE); COCAINE SCREEN URINE NEGATIVE (NEGATIVE); METHADONE STAT NEGATIVE (NEGATIVE); OPIATE SCREEN URINE NEGATIVE (NEGATIVE); OXYCODONE STAT NEGATIVE (NEGATIVE); PROPOXYPHENE STAT NEGATIVE (NEGATIVE); TRICYCLIC ANTIDEPRESSANTS SCRE NEGATIVE (NEGATIVE)
[2022-09-25] MEDS ORDERED: NS IV 1000 ML 1,000 ML IV SCH (21:30)
[2022-09-25 22:30] VITALS: BP 107/65
[2022-09-25] MEDS ORDERED: LORazepam INJ 2 MG/ML (ATIVAN) VIAL IM/IV PRN (23:00)
[2022-09-25] MEDS ORDERED: LORazepam 1 MG (ATIVAN) TAB PO PRN (23:00)
[2022-09-25] MEDS ORDERED: ANTACID SUSP 30 ML UDC (MYLANTA) PO PRN ×2 (23:00)
[2022-09-25] MEDS ORDERED: 1/2 NS IV SOLUTION 1,000 ML IV PRN (23:00)
[2022-09-25] MEDS ORDERED: THIAMINE 100 MG/ML 2 ML (VITAMIN B-1) VIAL IV ONE (23:00)
[2022-09-25] MEDS ORDERED: D5 1/2 NS 1000 ML IV SOLUTION 1,000 ML IV PRN (23:00)
[2022-09-25] MEDS ORDERED: polyethylene glycoL POWDER 17 GM (MIRALAX) PACK PO PRN (23:00)
[2022-09-25] MEDS ORDERED: SENNA W/DOCUSATE (SENOKOT S) TABLET PO PRN (23:00)
[2022-09-25 23:34] VITALS: BP 118/80
[2022-09-25] MEDS: MELATONIN 3 MG TABLET PO PRN (23:38)
[2022-09-25] MEDS: NS IV 1000 ML 1,000 ML IV SCH (23:39)
[2022-09-26] VITALS (9 sets, daily range): BP systolic 86–118; BP diastolic 57–90
[2022-09-26] MEDS ORDERED: RT-ALBUTEROL SULF 2.5 MG/3 ML PRE-MIX VIAL INH PRN (00:15)
--- NOTE | 2022-09-26 01:14 | Tele-ICU Consult ---
Progress Note 52 yo male presented with abdominal pain and distention. Had elevated lactate and was transferred from outside hospital Focused Exam Sepsis Stage: Sepsis Possible Source: GI Tract/Intra-Abdominal Lactate Level 09/25/22 17:50: Lactic Acid Level 3.83*H 09/25/22 19:52: Lactic Acid Level 2.62*H 09/25/22 21:40: Lactic Acid Level 2.29*H Height, Weight, BMI Height: 5'9.00" Weight: 147lbs. 6.4oz. 66.330737ho; 21.25 BMI Method:Stated Respiratory: No Accessory Muscle Use, No Respiratory Distress Lactic Acid Level Laboratory Tests Test 09/25/22 21:40 Lactic Acid Level 2.29 MMOL/L (0.50-2.00) *H Within 3hrs of presentation: Admin fluids, Lactate level Allergies and Home Medications Allergies Coded Allergies: No Known Drug Allergies (Unverified , 08/23/18) Home Medications Ciprofloxacin HCl 500 Mg Tablet, 500 MG PO BID Prescribed by: JOEL ZENG on 06/07/20 1421 Metronidazole 500 Mg Tablet, 500 MG PO BID Prescribed by: JOEL ZENG on 06/07/20 1421 Naproxen 500 Mg Tablet, 500 MG PO BID PRN for pain Prescribed by: VANNESSA JANG on 01/08/19 2141 Assessment/Plan Assessment and Plan Assess & Plan/Chief Complaint Lactic acidosis improved, no overt sepsis SCDs prophy Critical Care Critically Ill Patient CC TIME : Critical Care Start Date: Sep 26, 2022 Critical Care Start Time: 00:05 Stop date: Sep 26, 2022 Stop Time: 01:23 Data Review Labs Laboratory Tests 09/25/22 17:50: White Blood Count 10.4, Red Blood Count 3.34L, Hemoglobin 7.6L, Hematocrit 26L, Mean Corpuscular Volume 77L, Mean Corpuscular Hemoglobin 23L, Mean Corpuscular Hemoglobin Concent 30L, Red Cell Distribution Width 18.0H, Platelet Count 276, Mean Platelet Volume 8.9L, Immature Granulocyte % (Auto) 0, Neutrophils (%) (Auto) 79H, Lymphocytes (%) (Auto) 15, Monocytes (%) (Auto) 5, Eosinophils (%) ( Auto) 0, Basophils (%) (Auto) 0, Neutrophils # (Auto) 8.3H, Lymphocytes # (Auto) 1.6, Monocytes # (Auto) 0.5, Eosinophils # (Auto) 0.0, Basophils # (Auto) 0.0, Immature Granulocyte # (Auto) 0.0, Prothrombin Time 15.2H, INR Comment 1.2, Activated Partial Thromboplast Time 31, Sodium Level 129L, Potassium Level 3.8, Chloride Level 89L, Carbon Dioxide Level 18L, Anion Gap 22H, Blood Urea Nitrogen 4L, Creatinine 0.46L, Estimat Glomerular Filtration Rate 127, BUN/Creatinine Ratio 9, Glucose Level 97, Lactic Acid Level 3.83*H, Calcium Level 8.7, Corrected Calcium 9.3, Magnesium Level 1.9, Total Bilirubin 2.4H, Aspartate Amino Transf (AST/SGOT) 75H, Alanine Aminotransferase (ALT/SGPT) 26, Alkaline Phosphatase 441H, Ammonia 45H, Troponin I < 0.30, Pro-B-Type Natriuretic Peptide 134.6H, Total Protein 7.6, Albumin 3.2, Lipase 27, Serum Alcohol 156H 09/25/22 19:52: Lactic Acid Level 2.62*H, Urine Color YELLOW, Urine Clarity CLEAR, Urine pH 7.0, Urine Specific [place] <=1.005, Urine Protein NEGATIVE, Urine Glucose (UA) NEGATIVE, Urine Ketones 1+H, Urine Nitrite NEGATIVE, Urine Bilirubin NEGATIVE, Urine Urobilinogen 1.0, Urine Leukocyte Esterase NEGATIVE, Urine RBC (Auto) NEGATIVE, Urine RBC NONE, Urine WBC 0-2, Urine Squamous Epithelial Cells 2-5, Urine Crystals NONE, Urine Bacteria NEGATIVE, Urine Casts NONE, Urine Mucus SMALLH, Urine Culture Indicated NO, Urine Opiates Screen NEGATIVE, Urine Oxycodone Screen NEGATIVE, Urine Methadone Screen NEGATIVE, Urine Propoxyphene Screen NEGATIVE, Urine Barbiturates Screen NEGATIVE, Ur Tricyclic Antidepressan ts Screen NEGATIVE, Urine Phencyclidine Screen NEGATIVE, Urine Amphetamines Screen NEGATIVE, Urine Methamphetamines Screen NEGATIVE, Urine Benzodiazepines Screen NEGATIVE, Urine Cocaine Screen NEGATIVE, Urine Cannabinoids Screen POSITIVEH 09/25/22 21:40: Lactic Acid Level 2.29*H 09/25/22 23:16: Glucometer 77 Physical Exam Physical Exam Vital Signs Vital Signs - First Documented 09/25/22 09/25/22 09/26/22 17:30 23:34 00:08 Temp 36.9 Pulse 104 Resp 16 B/P (MAP) 118/80 (93) Pulse Ox 96 O2 Delivery Room Air O2 Flow Rate 0.00 FiO2 21 Capillary Refill : Less Than 3 Seconds Height, Weight, BMI Height: 5'9.00" Weight: 147lbs. 6.4oz. 66.273093rd; 21.25 BMI Method:Stated General Appearance: No Apparent Distress Respiratory: No Accessory Muscle Use, No Respiratory Distress Meds/Labs/Orders Lab results: Laboratory Tests Test 09/25/22 17:50 09/25/22 19:52 09/25/22 21:40 09/25/22 23:16 Range/Units White Blood Count 10.4 4.3-11.0 10^3/uL Red Blood Count 3.34 L 4.30-5.52 10^6/uL Hemoglobin 7.6 L 13.3-17.7 g/dL Hematocrit 26 L 40-54 % Mean Corpuscular Volume 77 L 80-99 fL Mean Corpuscular Hemoglobin 23 L 25-34 pg Mean Corpuscular Hemoglobin Concent 30 L 32-36 g/dL Red Cell Distribution Width 18.0 H 10.0-14.5 % Platelet Count 276 130-400 10^3/uL Mean Platelet Volume 8.9 L 9.0-12.2 fL Immature Granulocyte % (Auto) 0 % Neutrophils (%) (Auto) 79 H 42-75 % Lymphocytes (%) (Auto) 15 12-44 % Monocytes (%) (Auto) 5 0-12 % Eosinophils (%) (Auto) 0 0-10 % Basophils (%) (Auto) 0 0-10 % Neutrophils # (Auto) 8.3 H 1.8-7.8 10^3/uL Lymphocytes # (Auto) 1.6 1.0-4.0 10^3/uL Monocytes # (Auto) 0.5 0.0-1.0 10^3/uL Eosinophils # (Auto) 0.0 0.0-0.3 10^3/uL Basophils # (Auto) 0.0 0.0-0.1 10^3/uL Immature Granulocyte # (Auto) 0.0 0.0-0.1 10^3/uL Prothrombin Time 15.2 H 12.2-14.7 SEC INR Comment 1.2 0.8-1.4 Activated Partial Thromboplast Time 31 24-35 SEC Sodium Level 129 L 135-145 MMOL/L Potassium Level 3.8 3.6-5.0 MMOL/L Chloride Level 89 L 98-107 MMOL/L Carbon Dioxide Level 18 L 21-32 MMOL/L Anion Gap 22 H 5-14 MMOL/L Blood Urea Nitrogen 4 L 7-18 MG/DL Creatinine 0.46 L 0.60-1.30 MG/DL Estimat Glomerular Filtration Rate 127 BUN/Creatinine Ratio 9 Glucose Level 97 70-105 MG/DL Lactic Acid Level 3.83 *H 2.62 *H 2.29 *H 0.50-2.00 MMOL/L Calcium Level 8.7 8.5-10.1 MG/DL Corrected Calcium 9.3 8.5-10.1 MG/DL Magnesium Level 1.9 1.6-2.4 MG/DL Total Bilirubin 2.4 H 0.1-1.0 MG/DL Aspartate Amino Transf (AST/SGOT) 75 H 5-34 U/L Alanine Aminotransferase (ALT/SGPT) 26 0-55 U/L Alkaline Phosphatase 441 H 40-136 U/L Ammonia 45 H 11-32 UMOL/L Troponin I < 0.30 <0.30 NG/ML Pro-B-Type Natriuretic Peptide 134.6 H <125.0 PG/ML Total Protein 7.6 6.4-8.2 GM/DL Albumin 3.2 3.2-4.5 GM/DL Lipase 27 8-78 U/L Serum Alcohol 156 H <10 MG/DL Urine Color YELLOW Urine Clarity CLEAR Urine pH 7.0 5-[address] [place] [address] [place] <=1.005 1.016-1.022 Urine Protein NEGATIVE NEGATIVE Urine Glucose (UA) NEGATIVE NEGATIVE Urine Ketones 1+ H NEGATIVE Urine Nitrite NEGATIVE NEGATIVE Urine Bilirubin NEGATIVE NEGATIVE Urine Urobilinogen 1.0 < = 1.0 MG/DL Urine Leukocyte Esterase NEGATIVE NEGATIVE Urine RBC (Auto) NEGATIVE NEGATIVE Urine RBC NONE /HPF Urine WBC 0-2 /HPF Urine Squamous Epithelial Cells 2-5 /HPF Urine Crystals NONE /LPF Urine Bacteria NEGATIVE /HPF Urine Casts NONE /LPF Urine Mucus SMALL H /LPF Urine Culture Indicated NO Urine Opiates Screen NEGATIVE NEGATIVE Urine Oxycodone Screen NEGATIVE NEGATIVE Urine Methadone Screen NEGATIVE NEGATIVE Urine Propoxyphene Screen NEGATIVE NEGATIVE Urine Barbiturates Screen NEGATIVE NEGATIVE Ur Tricyclic Antidepressants Screen NEGATIVE NEGATIVE Urine Phencyclidine Screen NEGATIVE NEGATIVE Urine Amphetamines Screen NEGATIVE NEGATIVE Urine Methamphetamines Screen NEGATIVE NEGATIVE Urine Benzodiazepines Screen NEGATIVE NEGATIVE Urine Cocaine Screen NEGATIVE NEGATIVE Urine Cannabinoids Screen POSITIVE H NEGATIVE Glucometer 77 70-110 MG/DL My orders: Orders - LANCE VALLE MD Thiamine Tablet (Vitamin B-1 Tablet) (09/26/22 07:00) Pantoprazole Injection (Protonix Injecti (09/26/22 01:00) LANCE VALLE MD Sep 26, 2022 01:14
[2022-09-26] MEDS: PANTOPRAZOLE 40 MG (PROTONIX) VIAL IV SCH ×2 (01:54→11:49)
[2022-09-26 03:26] LABS: HEMATOCRIT 21 % (40-54); MEAN CORPUSCULAR HEMOGLOBIN 22 pg (25-34); MEAN CORPUSCULAR HGB CONC 30 g/dL (32-36); MEAN CORPUSCULAR VOLUME 76 fL (80-99); PLATELET COUNT 221 10^3/uL (130-400); WHITE BLOOD COUNT 11.7 10^3/uL (4.3-11.0)
[2022-09-26 03:39] LABS: HEMOGLOBIN 6.1 g/dL (13.3-17.7)
[2022-09-26 03:50] LABS: INR 1.4 (0.8-1.4); PROTHROMBIN TIME PATIENT 17.1 SEC (12.2-14.7)
[2022-09-26] MEDS ORDERED: NS IV 500 ML 500 ML IV SCH ×2 (04:15)
[2022-09-26 04:19] LABS: POTASSIUM 3.3 MMOL/L (3.6-5.0)
[2022-09-26 04:20] LABS: CALCIUM 7.8 MG/DL (8.5-10.1)
[2022-09-26 04:24] LABS: CREATININE SERUM 0.59 MG/DL (0.60-1.30)
[2022-09-26] MEDS ORDERED: NS IV 500 ML 500 ML IV PRN (04:45)
[2022-09-26] MEDS ORDERED: KCL 20 MEQ TAB (K-DUR) PO ONE ×2 (06:00→08:00)
[2022-09-26] MEDS: KCL 20 MEQ TAB (K-DUR) PO SCH (06:04)
[2022-09-26] MEDS: POTASSIUM CL 10MEQ/50ML IVPB 50 ML IV SCH (06:04)
[2022-09-26] MEDS: MAGNESIUM 1 GM/100 ML IVPB 100 ML IV SCH (06:04)
[2022-09-26] MEDS: THIAMINE 100 MG (VITAMIN B-1) TAB PO SCH (06:31)
[2022-09-26] MEDS: NICOTINE 14 MG (NICODERM) PATCH TD SCH (08:53)
[2022-09-26] MEDS: MAGNESIUM OXIDE (MAG-OX)400 MG TAB PO SCH ×2 (08:53→21:02)
[2022-09-26] MEDS: NS IV 1000 ML 1,000 ML IV SCH ×3 (08:53→23:41)
[2022-09-26] MEDS: FOLIC ACID 1 MG TAB PO SCH (08:54)
[2022-09-26] MEDS: ONDANSETRON 4 MG/2 ML (SDV) Z0FRAN IV PRN (09:04)
--- NOTE | 2022-09-26 10:04 | Tele-ICU Progress Note ---
Subjective Date Seen by a Provider: Sep 26, 2022 Time Seen by a Provider: 10:03 Subjective/Events-last exam (Tele-ICU Physician , Progress Note ) Service provided via interactive audio and video telecommunications E-CARE system to a patient admitted to ICU bed in [facility]. Patient is seen today due to persistent need of ICU care Available chart/ vitals / labs / Images reviewed Video assessment done using teleICU camera, rest of exam as per RN Discussed with RN Events overnight : Afebrile hemodynamically stable Respiratory - ra I/O =+ Drips: ns 100 Pressors- no Hospital course: (09/25) 52yr M admitted for Ascites due to Alcoholic Cirrhosis, Dehydration, Alcohl Abuse. Patient to ER with abdominal pain and distention for 1 week. He had nausea all week with vomiting that started today. He drinks 50 ounces of beer everyday. A/P N/V / abd distension in patient with Alcoholic liver cirrhosis - ascitis on CT - will cover with abx for possible SBP, ? paracentesis Anemia - ? GIB , with extensive esophageal varicosities present - s/p transfusion 2 uPRBC 09/26 -PPI IV -scope latter? - follow ETON abuse - monitr for withdrawal-CIWA, vitamins Lines : periph , (Central Line Necessity Reviewed) Martinez: void OG: Nutrition: Analgesia: Anxiety/ delirium VTE Prophylaxis: scd Stress Ulcer Prophylaxis: ppi Plans in collaboration with bedside consultants and IM MDs. Discussed with RN to reach out if any questions or concerns A total of 20 minutes of critical care time was devoted to this patient today, required to treat and/or prevent further deterioration of critical care condition ( as above ) . I am remotely monitoring this patient from another state. I am unable to do the bedside exam, and history/physical and pertinent information is taken from other notes in the computer and bedside staff. . Sepsis Event Evaluation Height, Weight, BMI Height: 5'9.00" Weight: 147lbs. 6.4oz. 66.557314lq; 21.48 BMI Method:Stated Focused Exam Lactate Level 09/25/22 17:50: Lactic Acid Level 3.83*H 09/25/22 19:52: Lactic Acid Level 2.62*H 09/25/22 21:40: Lactic Acid Level 2.29*H Exam Exam Patient acknowledged, consented, and participated in this virtual visit which was conducted using real time audio/video Vital Signs Date Time Temp Pulse Resp B/P (MAP) Pulse Ox O2 Delivery O2 Flow Rate FiO2 09/26/22 09:00 103 19 108/76 (87) 96 Room Air 09/26/22 08:19 97 Room Air 0.00 09/26/22 08:11 36.4 90 18 103/72 98 Room Air 09/26/22 08:06 36.3 85 18 109/74 98 09/26/22 08:01 36.3 95 18 102/73 98 Room Air 09/26/22 08:00 98 Room Air 09/26/22 08:00 96 21 109/74 (86) 98 Room Air 09/26/22 07:56 36.4 96 18 108/73 Room Air 09/26/22 07:31 36.3 Room Air 09/26/22 07:00 109 09/26/22 07:00 98 25 147/78 (104) 96 Room Air 09/26/22 05:43 36.6 101 19 118/90 96 Room Air 09/26/22 05:28 36.8 90 21 101/74 97 Room Air 09/26/22 05:00 94 15 118/90 (99) 96 Room Air 09/26/22 05:00 94 15 118/90 (99) 96 Room Air 09/26/22 04:00 96 21 86/57 (67) 96 Room Air 09/26/22 04:00 36.4 09/26/22 04:00 96 21 101/74 (83) 96 Room Air 09/26/22 04:00 98 Room Air 09/26/22 02:00 108 18 89/65 (73) 96 Room Air 09/26/22 01:15 101 15 89/65 (73) 96 Room Air 09/26/22 00:08 98 Room Air 0.00 21 09/26/22 00:00 102 09/25/22 23:51 96 Room Air 09/25/22 23:40 36.9 Room Air 09/25/22 23:34 36.9 104 96 21 09/25/22 23:08 101 09/25/22 22:30 106 24 107/65 (79) 96 Room Air 09/25/22 21:25 105 16 92/60 99 Room Air 09/25/22 17:30 36.9 104 16 118/80 (93) 96 Room Air I & O 09/26/22 06:59 Intake Total 1584 ml Output Total 400 ml Balance 1184 ml Height & Weight Height: 5'9.00" Weight: 147lbs. 6.4oz. 66.003440im; 21.48 BMI Method:Stated General Appearance: No Apparent Distress Respiratory: No Accessory Muscle Use, No Respiratory Distress Capillary Refill: Less Than 3 Seconds Gastrointestinal: distended (Tense abdomen, no shifting dullness), tenderness (And right upper quadrant and periumbilical), other (Distant bowel sounds heard) Results Lab Laboratory Tests 09/25/22 17:50 09/26/22 03:05 Assessment/Plan Assessment/Plan 1 NATA VERGARA MD Sep 26, 2022 10:04
--- NOTE | 2022-09-26 10:45 | History & Physical-Hospitalist ---
History of Present Illness HPI/Chief Complaint Pt is 52-year-old male with past medical history of alcohol abuse who presented to the emergency department due to abdominal pain and swelling. He states symptoms started roughly a week and a half ago when he noticed that his stomach started swelling and then started hurting. He has been quite nauseous. He has vomited intermittently with this as well. He denies any dark or bloody vomit along with denying dark or bloody stools. He also complains of some swelling in his legs. He is an active alcohol user and drinks 2 25 ounce beers a day and has for the past year. Prior to a year ago he was drinking as much as he can get his hands on per his report. In the emergency department a CT of his abdomen was done which showed large volume ascites and cirrhosis. He is also quite anemic. He was admitted for further management. He denies any withdrawal symptoms at this time but states he has withdrawn before. When asked if he is ever had a seizure he is unsure but states "it got pretty weird." His last drink was yesterday afternoon around 1230 or 1 PM. Source: patient Date Seen 09/26/22 Time Seen by a Provider: 10:36 Attending Physician No,Local Physician PCP Admitting Physician: Gabriel Cerna MD Attending Physician: Gabriel Cerna MD Referring Physician Date of Admission Sep 25, 2022 at 22:40 Home Medications & Allergies Home Medications Reviewed patient Home Medication Reconciliation performed by pharmacy medication reconciliations medical equipment repair technician and/or nursing. Patients Allergies have been reviewed. Allergies Allergies Coded Allergies No Known Drug Allergies (Unverified08/23/18) Past Mscmaye-Ezfaie-Ziegdo Hx Patient Social History Tobacco Use?: Yes Tobacco type used: Cigars Smoking Status: Current Everyday Smoker Use of E-Cig and/or Vaping dev: No Substance use?: Yes Substance type: Marijuana Substance frequency: Once in a while Alcohol Use?: Yes Alcohol type: Beer Alcohol Frequency: Daily Pt feels they are or have been: No Immunizations Up To Date Tetanus Booster (TDap): Unknown Seasonal Allergies Seasonal Allergies: No Current Status Advance Directives: No Communicates: Verbally Primary Language: Ug[place]an Preferred Spoken Language: Ugandan Is interpretation needed?: No Implanted or Applied Medical D: None Past Medical History Suicide Attempts Blood Disorders: No Family Medical History Reviewed Nursing Family Hx No Pertinent Family Hx Review of Systems Constitutional: see HPI Physical Exam Physical Exam Vital Signs Vital Signs - First Documented 09/25/22 09/25/22 09/26/22 17:30 23:34 00:08 Temp 36.9 Pulse 104 Resp 16 B/P (MAP) 118/80 (93) Pulse Ox 96 O2 Delivery Room Air O2 Flow Rate 0.00 FiO2 21 Capillary Refill : Less Than 3 Seconds Height, Weight, BMI Height: 5'9.00" Weight: 147lbs. 6.4oz. 66.450111mi; 21.48 BMI Method:Stated General Appearance: No Apparent Distress, Chronically ill, Thin Respiratory: No Respiratory Distress Cardiovascular: Regular Rate, Rhythm, No Murmur Gastrointestinal: Normal Bowel Sounds, Non Tender, Distended; No Guarding Extremity: No Calf Tenderness, Pedal Edema, Swelling (2+ pitting to calves) Neurologic/Psychiatric: Alert, Oriented x3 Results Results/Procedures Labs Laboratory Tests 09/25/22 17:50 09/26/22 03:05 09/26/22 11:26 Patient resulted labs reviewed. Imaging: Reviewed Imaging Report Imaging [facility], [place] NAME: LALO CALDERÓN [facility] REC#: [id number] PT STATUS: REG ER : 1970 PHYSICIAN: LIA MO MD ADMIT DATE: 09/25/22/ER FS Signed Date of Exam:09/25/22 CT ABDOMEN/PELVIS W PROCEDURE: CT abdomen and pelvis with contrast. TECHNIQUE: Multiple contiguous axial images were obtained through the abdomen and pelvis after administration of intravenous contrast. Auto Exposure Controls were utilized during the CT exam to meet ALARA standards for radiation dose reduction. All CT scans use one or more of the following dose optimizing techniques: automated exposure control, MA and/or KvP adjustment based on patient size and exam type or iterative reconstruction. INDICATION: 52-year-old male, long history of alcoholism with distended abdomen, abdominal pain and vomiting x 4 days. Diarrhea daily. CORRELATION STUDY: None. FINDINGS: LOWER THORAX: Trace bilateral pleural effusions, right slightly greater than left. Minimal right basilar atelectasis. Rather diffuse wall thickening of the low esophagus with multiple extensive esophageal varicosities present. LIVER: Small, 12.6 cm in length, heterogeneous and nodular compatible with marked advanced cirrhotic morphology. No definitive focal lesion. GALLBLADDER: Present and generally unremarkable. No bile duct dilatation. SPLEEN: Normal in size, 10 cm. PANCREAS: Fluid in and around the pancreatic head is likely ascites. Pancreas has a generally unremarkable appearance. However, low attenuating lesion of the pancreatic head is not excluded measuring approximately 15 x 8 mm. ADRENAL GLANDS: Unremarkable. KIDNEYS: Normal configuration. No calcification or obstruction. ABDOMINAL AORTA: Mild to moderate atherosclerotic plaque, nonaneurysmal. Major branches patent at their origin; however, there is significant stenosis origin celiac trunk. Upper abdominal varicosities. This includes a small recanalized umbilical vein. Esophageal, gastric and splenic varicosities. Splenic vein, superior mesenteric vein and portal vein patent. GASTROINTESTINAL TRACT: Gastrointestinal track is displaced centrally. No definitive obstruction. Normal appendix present. There are areas of wall thickening of the colon and small bowel. URINARY BLADDER: Unremarkable. REPRODUCTIVE: Unremarkable. OSSEOUS STRUCTURES: More focal degenerative disc disease at the L4-L5 level. Spinal canal foraminal narrowing owing to degenerative change. No acute bony abnormality. OTHER: Massively large volume ascites. Questionable area of nodularity anterior mesentery. IMPRESSION: 1. Advanced cirrhotic morphology of the liver. Markedly large volume ascites along with upper abdominal varicosities. Spleen size however is normal. 2. Wall thickening of small bowel and colon. May very well be attributed to underlying hepatic enteropathy. No suggestion for obstruction. Gastrointestinal track however is significantly displaced centrally from the ascites. 3. Questionable low density lesion of the pancreatic head. This however may be attributed to the fluid. Attention at short-term follow-up imaging is however recommended for reassessment of this questionable finding. Dictated by: Dictated on workstation # [id number] Dict: 09/25/221902 Trans: 09/25/222203 [facility] [id number] Interpreted by: AGA GUZMAN DO Electronically signed by: AGA GUZMAN DO 09/25/222203 Assessment/Plan Admission Diagnosis Decompensated alcoholic cirrhosis Admission Status: Inpatient Order (span 2 midnights) Reason for Inpatient Admission: see below Assessment and Plan Decompensated alcoholic cirrhosis Alcohol abuse Microcytic anemia Beer potomania- improved Hypokalemia lactic acidosis ?pancreatic mass Surgery consulted, appreciate recs May need scoped 2 units pRBCS ordered Iron studies ordered CIWA protocol likely will need paracentesis- defer to surgery trial dose of lasix Recommended alcohol cessation strongly and that if he continues to drink he will likely end up dying due to his liver disease- he expresses understanding a nd is interested in seeking treatment Lactic acid elevated and likely not clearing well due to live disease Protonix BID MRI in AM if doing better DVT ppx: SCDs only due to anemia GABRIEL CERNA MD Sep 26, 2022 10:45
[2022-09-26] MEDS ORDERED: FUROSEMIDE 40 MG/4 ML INJ (LASIX) IVP NR (11:00)
--- NOTE | 2022-09-26 11:22 | Consultation - Surgery ---
History of Present Illness History of Present Illness Patient Consulted On(mary/time) 09/26/22 11:16 Date Seen by Provider: Sep 26, 2022 Time Seen by Provider: 11:16 History of Present Illness Consult requested by Dr. Cerna for symptomatic ascites. Patient is a 52 year old male who's abdomen has increased in size over the last week and a half. He states last couple days it's extremely uncomfortable. P atient drinks about 50 oz of beer daily for the last year. Previous to that he would drink as much as he could get. Has moderate to severe abdominal pressure pain, all over. No radiation. Notes chronic pain as well. Patient states nothing makes better or worse. Has had nausea and vomiting and slight difficulty breathing at times due to fluid in abdomen. Had ct scan demonstratin. Advanced cirrhotic morphology of the liver. Markedly large volume ascites along with upper abdominal varicosities. Spleen size however is normal. 2. Wall thickening of small bowel and colon. May very well be attributed to underlying hepatic enteropathy. No suggestion for obstruction. Gastrointestinal track however is significantly displaced centrally from the ascites. 3. Questionable low density lesion of the pancreatic head. This however may be attributed to the fluid. Attention at short-term follow-up imaging is however recommended for reassessment of this questionable finding. Allergies and Home Medications Allergies Coded Allergies: No Known Drug Allergies (Unverified , 08/23/18) Patient Home Medication List Home Medication List Reviewed: Yes Ciprofloxacin HCl (Ciprofloxacin HCl) 500 Mg Tablet, 500 MG PO BID Prescribed by: JOEL ZENG on 06/07/20 1421 Metronidazole (Metronidazole) 500 Mg Tablet, 500 MG PO BID Prescribed by: JOEL ZENG on 06/07/20 1421 Naproxen (Naprosyn) 500 Mg Tablet, 500 MG PO BID PRN for pain Prescribed by: VANNESSA JANG on 01/08/19 2141 Past [id number]-Cxfzed Hx Patient Social History Drug of Choice: MARIJUANA Smoking Status: Current Everyday Smoker Type Used: Cigarettes 2nd Hand Smoke Exposure: No Recent Hopitalizations: No Alcohol Use?: Yes Substance type: Marijuana Immunizations Up To Date Tetanus Booster (TDap): Unknown Seasonal Allergies Seasonal Allergies: No Surgeries History of Surgeries: No Respiratory History of Respiratory Disorde: No Cardiovascular History of Cardiac Disorders: No Neurological History of Neurological Disord: No Genitourinary History of Genitourinary Disor: No Gastrointestinal History of Gastrointestinal Di: No Musculoskeletal History of Musculoskeletal Dis: No Endocrine History of Endocrine Disorders: No HEENT History of HEENT Disorders: No Cancer History of Cancer: No Psychosocial History of Psychiatric Problem: No Behavioral Health Disorders: Suicide Attempts Integumentary History of Skin or Integumenta: No Blood Transfusions History of Blood Disorders: No Reviewed Nursing Assessment Reviewed/Agree w Nursing PMH: Yes Family Medical History Significant Family History: No Pertinent Family Hx Review of Systems-General Constitutional: No diaphoresis, No weakness EENTM: No blurred vision, No double vision Respiratory: No cough; short of breath Gastrointestinal: abdominal pain, nausea, vomiting, other (distention) Genitourinary: No decreased output, No discharge Musculoskeletal: No back pain, No joint pain Skin: No change in color, No change in hair/nails Psychiatric/Neurological: Denies Anxiety, Denies Depressed, Denies Emotional Problems All Other Systems Reviewed Negative Unless Noted: Yes (Negative excepted noted.) Physical Exam-General Problems Physical Exam Vital Signs Vital Signs - First Documented 09/25/22 09/25/22 09/26/22 17:30 23:34 00:08 Temp 36.9 Pulse 104 Resp 16 B/P (MAP) 118/80 (93) Pulse Ox 96 O2 Delivery Room Air O2 Flow Rate 0.00 FiO2 21 Capillary Refill : Less Than 3 Seconds General Appearance: WD/WN, no apparent distress HEENT: PERRL/EOMI, normal ENT inspection Neck: non-tender, full range of motion Respiratory: chest non-tender, no respiratory distress, no accessory muscle use Cardiovascular: regular rate, rhythm, no JVD Gastrointestinal: no pulsatile mass, distended (c fluid wave) Rectal: deferred Back: normal inspection, no CVA tenderness Extremities: normal range of motion, non-tender Neurologic/Psychiatric: alert, normal mood/affect, oriented x 3 Skin: warm/dry, pallor Lymphatic: no adenopathy Data Review Labs Laboratory Tests 09/25/22 17:50: White Blood Count 10.4, Red Blood Count 3.34L, Hemoglobin 7.6L, Hematocrit 26L, Mean Corpuscular Volume 77L, Mean Corpuscular Hemoglobin 23L, Mean Corpuscular Hemoglobin Concent 30L, Red Cell Distribution Width 18.0H, Platelet Count 276, Mean Platelet Volume 8.9L, Immature Granulocyte % (Auto) 0, Neutrophils (%) (Auto) 79H, Lymphocytes (%) (Auto) 15, Monocytes (%) (Auto) 5, Eosinophils (%) (Auto) 0, Basophils (%) (Auto) 0, Neutrophils # (Auto) 8.3H, Lymphocytes # (Auto) 1.6, Monocytes # (Auto) 0.5, Eosinophils # (Auto) 0.0, Basophils # (Auto) 0.0, Immature Granulocyte # (Auto) 0.0, Prothrombin Time 15.2H, INR Comment 1.2, Activated Partial Thromboplast Time 31, Sodium Level 129L, Potassium Level 3.8, Chloride Level 89L, Carbon Dioxide Level 18L, Anion Gap 22H, Blood Urea Nitrogen 4L, Creatinine 0.46L, Estimat Glomerular Filtration Rate 127, BUN/Creatinine Ratio 9, Glucose Level 97, Lactic Acid Level 3.83*H, Calcium Level 8.7, Corrected Calcium 9.3, Magnesium Level 1.9, Total Bilirubin 2.4H, Aspartate Amino Transf (AST/SGOT) 75H, Alanine Aminotransferase (ALT/SGPT) 26, Alkaline Phosphatase 441H, Ammonia 45H, Troponin I < 0.30, Pro-B-Type Natriuretic Peptide 134.6H, Total Protein 7.6, Albumin 3.2, Lipase 27, Serum Alcohol 156H 09/25/22 19:52: Lactic Acid Level 2.62*H, Urine Color YELLOW, Urine Clarity CLEAR, Urine pH 7.0, Urine Specific [place] <=1.005, Urine Protein NEGATIVE, Urine Glucose (UA) NEGATIVE, Urine Ketones 1+H, Urine Nitrite NEGATIVE, Urine Bilirubin NEGATIVE, Urine Urobilinogen 1.0, Urine Leukocyte Esterase NEGATIVE, Urine RBC (Auto) NEGATIVE, Urine RBC NONE, Urine WBC 0-2, Urine Squamous Epithelial Cells 2-5, Urine Crystals NONE, Urine Bacteria NEGATIVE, Urine Casts NONE, Urine Mucus SMALLH, Urine Culture Indicated NO, Urine Opiates Screen NEGATIVE, Urine Oxycodone Screen NEGATIVE, Urine Methadone Screen NEGATIVE, Urine Propoxyphene Screen NEGATIVE, Urine Barbiturates Screen NEGATIVE, Ur Tricyclic Antidepressants Screen NEGATIVE, Urine Phencyclidine Screen NEGATIVE, Urine Amphetamines Screen NEGATIVE, Urine Methamphetamines Screen NEGATIVE, Urine Benzodiazepines Screen NEGATIVE, Urine Cocaine Screen NEGATIVE, Urine Cannabinoids Screen POSITIVEH 09/25/22 21:40: Lactic Acid Level 2.29*H 09/25/22 23:16: Glucometer 77 09/26/22 03:05: White Blood Count 11.7H, Red Blood Count 2.73L, Hemoglobin 6.1*L, Hematocrit 21L , Mean Corpuscular Volume 76L, Mean Corpuscular Hemoglobin 22L, Mean Corpuscular Hemoglobin Concent 30L, Red Cell Distribution Width 18.1H, Platelet Count 221, Mean Platelet Volume 9.0, Prothrombin Time 17.1H, INR Comment 1.4, Sodium Level 133L, Potassium Level 3.3L, Chloride Level 100, Carbon Dioxide Level 21, Anion Gap 12, Blood Urea Nitrogen 3L, Creatinine 0.59L, Estimat Glomerular Filtration Rate 118, BUN/Creatinine Ratio 5, Glucose Level 86, Calcium Level 7.8L, Magnesium Level 1.6 Assessment/Plan Assessment/Plan Assessment/Plan liver cirrhosis alcohol dependence symptomatic ascites anemia abnormal ct abdomen/pelvis with questionable pancreatic head lesion Patient being transfused at this time. We discussed risks and benefits of paracentesis and he understands and wishes to proceed, will send for labs and cytology Would consider MRI pancreas in short term. Anemia- being transfused would consider endoscopy in near future DATE OF SERVICE: 09/26/22 PREOPERATIVE DIAGNOSIS: Symptomatic abdominal ascites. POSTOPERATIVE DIAGNOSIS: Symptomatic abdominal ascites. PROCEDURE: Ultrasound-guided paracentesis. SURGEON: Verena Shelton DO ANESTHESIA: Local. ESTIMATED BLOOD LOSS: Scant. COMPLICATIONS: None. INDICATIONS: The patient is a 52 male with cirrhosis of liver and symptomatic ascites.The patient understands risks and benefits of procedure and wished to proceed. Consent was signed and on the chart. DESCRIPTION OF PROCEDURE: The patient was prepped and draped in sterile fashion after ultrasound was used to isolate the best pocket for drainage. Local anesthetic was infiltrated 5 ml of 1%lidocaine. An 11 blade scalpel was then used to make a small incision. The [id number] needle and catheter were then advanced through the abdominal wall until straw-colored fluid was withdrawn. The catheter was advanced, and the needle was removed. The 10,550 mL of straw-colored fluid was withdrawn. The catheter was then removed, and a sterile bandage was applied. The patient tolerated procedure well without any complications. VERENA SHELTON DO Sep 26, 2022 11:22
[2022-09-26 11:41] LABS: HEMOGLOBIN 8.7 g/dL (13.3-17.7)
[2022-09-26 11:48] LABS: BODY FLUID RBC COUNT 0.001 10^6/uL; BODY FLUID WBC TOTAL COUNT 0.049 10^3/uL
[2022-09-26] MEDS: CEFEPIME INJECTION 1,000 MG in NS (IVPB) 50 ML IV SCH ×3 (11:49→21:02)
[2022-09-26 12:05] LABS: GLUCOSE,BODY FLUID 94 MG/DL; TOTAL PROTEIN,BODY FLUID 0.8 G/DL
[2022-09-26 12:36] LABS: BODY FLUID APPEARENCE CLEAR; BODY FLUID COLOR YELLOW; BODY FLUID SOURCE PERITON
[2022-09-26] MEDS ORDERED: ALBUMIN 25% 25 GM/100 ML 100 ML IV ONE (13:30)
[2022-09-26] MEDS: LORazepam INJ 2 MG/ML (ATIVAN) VIAL IV PRN ×2 (21:07→22:28)
[2022-09-26] MEDS: MELATONIN 3 MG TABLET PO PRN (21:43)
[2022-09-27] MEDS: PANTOPRAZOLE 40 MG (PROTONIX) VIAL IV SCH (01:46)
[2022-09-27] MEDS: CEFEPIME INJECTION 1,000 MG in NS (IVPB) 50 ML IV SCH ×4 (03:16→21:21)
[2022-09-27 04:42] LABS: HEMATOCRIT 26 % (40-54); HEMOGLOBIN 8.1 g/dL (13.3-17.7); MEAN CORPUSCULAR HEMOGLOBIN 24 pg (25-34); MEAN CORPUSCULAR HGB CONC 32 g/dL (32-36); MEAN CORPUSCULAR VOLUME 77 fL (80-99); MEAN PLATELET VOLUME 9.2 fL (9.0-12.2); PLATELET COUNT 184 10^3/uL (130-400); WHITE BLOOD COUNT 7.5 10^3/uL (4.3-11.0)
[2022-09-27 04:51] LABS: POTASSIUM 2.9 MMOL/L (3.6-5.0)
[2022-09-27 04:52] LABS: CALCIUM 7.4 MG/DL (8.5-10.1)
[2022-09-27 04:57] LABS: CREATININE SERUM 0.61 MG/DL (0.60-1.30)
[2022-09-27 04:59] LABS: MAGNESIUM 1.4 MG/DL (1.6-2.4)
[2022-09-27] MEDS: KCL 20 MEQ TAB (K-DUR) PO SCH (05:26)
[2022-09-27] MEDS: POTASSIUM CL 10MEQ/50ML IVPB 50 ML IV SCH ×9 (05:54→12:28)
[2022-09-27] MEDS: MAGNESIUM 1 GM/100 ML IVPB 100 ML IV SCH ×6 (05:54→10:00)
[2022-09-27] MEDS: THIAMINE 100 MG (VITAMIN B-1) TAB PO SCH (05:54)
[2022-09-27] MEDS: NS IV 1000 ML 1,000 ML IV SCH ×3 (06:52→17:22)
[2022-09-27] MEDS: NICOTINE 14 MG (NICODERM) PATCH TD SCH (08:52)
[2022-09-27] MEDS: MAGNESIUM OXIDE (MAG-OX)400 MG TAB PO SCH ×2 (08:53→21:21)
[2022-09-27] MEDS: FOLIC ACID 1 MG TAB PO SCH (08:53)
[2022-09-27] MEDS ORDERED: SPIR50TA4 PO (09:41)
[2022-09-27] MEDS ORDERED: FURO-125 PO (09:41)
--- NOTE | 2022-09-27 10:09 | Physical Therapy Progress Note ---
Therapy Progress Note Patient declined PT intervention. Per report, patient will dismiss to home on this date. KULWINDER SANTOS PT Sep 27, 2022 10:09
--- NOTE | 2022-09-27 13:13 | Progress Note - Surgery ---
Subjective Date Seen by a Provider: Sep 27, 2022 Time Seen by a Provider: 08:18 Subjective/Events-last exam Abdomen feeling better. Hgb 8.1. Tolerating diet. Denies any new complaints. Denies n/v fever sweats chills shortness of breath or chest pain. Focused Exam Lactate Level 09/25/22 17:50: Lactic Acid Level 3.83*H 09/25/22 19:52: Lactic Acid Level 2.62*H 09/25/22 21:40: Lactic Acid Level 2.29*H Objective Exam Vital Signs Date Time Temp Pulse Resp B/P (MAP) Pulse Ox O2 Delivery O2 Flow Rate FiO2 09/27/22 12:00 98 Room Air 09/27/22 11:26 36.1 09/27/22 11:00 81 14 98/81 (87) 99 Room Air 09/27/22 10:00 89 15 92/69 (77) 98 Room Air 09/27/22 09:00 92 16 101/77 (85) 96 Room Air 09/27/22 08:15 36.0 09/27/22 08:00 98 Room Air 09/27/22 08:00 73 17 94/67 (76) 96 Room Air 09/27/22 07:00 82 30 87/61 (70) 96 Room Air 09/27/22 07:00 79 09/27/22 06:00 90 19 91/64 (71) 96 Room Air 09/27/22 05:00 85 17 84/60 (67) 95 Room Air 09/27/22 04:00 96 Room Air 09/27/22 04:00 91 19 88/66 (75) 98 Room Air 09/27/22 03:00 87 18 88/62 (68) 97 Room Air 09/27/22 02:00 92 22 84/61 (67) 95 Room Air 09/27/22 01:00 96 09/27/22 01:00 98 20 89/59 (69) 97 Room Air 09/27/22 00:00 101 22 90/63 (72) 97 Room Air 09/26/22 23:40 97 Room Air 09/26/22 23:38 36.8 09/26/22 23:00 105 86/62 (70) 95 Room Air 09/26/22 22:00 103 23 87/64 (72) 96 Room Air 09/26/22 21:00 88 15 91/62 (72) 96 Room Air 09/26/22 19:50 99 Room Air 09/26/22 19:16 36.8 98 Room Air 09/26/22 19:03 91 09/26/22 19:00 90 18 93/65 (73) 99 Room Air 09/26/22 18:59 99 Room Air 09/26/22 18:00 89 15 97/64 (76) 97 Room Air 09/26/22 17:00 92 18 102/67 (76) 98 Room Air 09/26/22 16:00 86 14 101/68 (80) 99 Room Air 09/26/22 15:29 36.6 98 Room Air 09/26/22 15:24 98 Room Air 09/26/22 15:00 93 20 101/71 (80) 99 Room Air 09/26/22 14:00 93 7 108/77 (88) 98 Room Air I & O 09/27/22 07:00 Intake Total 2520 ml Output Total 35481 ml Balance -94403 ml Capillary Refill : Less Than 3 Seconds General Appearance: No Apparent Distress, Chronically ill, Thin Respiratory: No Respiratory Distress Cardiovascular: Regular Rate, Rhythm, No Murmur Gastrointestinal: no pulsatile mass, distended (minimal) Extremity: No Calf Tenderness, Pedal Edema, Swelling (2+ pitting to calves) Neurologic/Psychiatric: Alert, Oriented x3 Skin: Normal Color, Warm/Dry Lymphatic: No Adenopathy Results Lab Laboratory Tests 09/27/22 03:43: White Blood Count 7.5, Red Blood Count 3.33L, Hemoglobin 8.1L, Hematocrit 26L, Mean Corpuscular Volume 77L, Mean Corpuscular Hemoglobin 24L, Mean Corpuscular Hemoglobin Concent 32, Red Cell Distribution Width 17.5H, Platelet Count 184, Mean Platelet Volume 9.2, Sodium Level 133L, Potassium Level 2.9L, Chloride Level 102, Carbon Dioxide Level 24, Anion Gap 7, Blood Urea Nitrogen 3L, Creatinine 0.61, Estimat Glomerular Filtration Rate 117, BUN/Creatinine Ratio 5, Glucose Level 108H, Calcium Level 7.4L, Magnesium Level 1.4L Microbiology 09/26/22 Gram Stain - Final, Resulted 09/26/22 Body Fluid Culture, Resulted Pending 09/25/22 Blood Culture - Preliminary, Resulted No growth Assessment/Plan Assessment/Plan Assessment/Plan liver cirrhosis alcohol dependence symptomatic ascites anemia abnormal ct abdomen/pelvis with questionable pancreatic head lesion Hgb improved paracentesis he tolerated fluid was sent for analysis- labs and cytology Would consider MRI pancreas in short term. Anemia- consider endoscopy in near future VERENA SHELTON DO Sep 27, 2022 13:13
[2022-09-27] MEDS: ONDANSETRON 4 MG/2 ML (SDV) Z0FRAN IV PRN (13:59)
--- NOTE | 2022-09-27 16:09 | Discharge Summary ---
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 He had ascites and had 10 L drained by surgery. He was started on Lasix and Aldactone. He also had anemia and required 1 unit PRBC transfusion. He had no evidence of acute blood loss. He will follow up with surgery for outpatient endoscopic evaluation. He also had a CT which showed p ossible pancreatic head mass vs fluid collection. He needs to have a repeat CT in about a month and an order was given. He was referred to [facility] to establish with a PCP. Labs and Pending Lab Test: Laboratory Tests 09/27/22 03:43: White Blood Count 7.5, Red Blood Count 3.33L, Hemoglobin 8.1L, Hematocrit 26L, Mean Corpuscular Volume 77L, Mean Corpuscular Hemoglobin 24L, Mean Corpuscular Hemoglobin Concent 32, Red Cell Distribution Width 17.5H, Platelet Count 184, Mean Platelet Volume 9.2, Sodium Level 133L, Potassium Level 2.9L, Chloride Level 102, Carbon Dioxide Level 24, Anion Gap 7, Blood Urea Nitrogen 3L, Creatinine 0.61, Estimat Glomerular Filtration Rate 117, BUN/Creatinine Ratio 5, Glucose Level 108H, Calcium Level 7.4L, Magnesium Level 1.4L 09/27/22 13:46: Lab Scanned Report Transfusion Reaction Form Microbiology 09/26/22 Gram Stain - Final, Resulted 09/26/22 Body Fluid Culture, Resulted Pending 09/25/22 Blood Culture - Preliminary, Resulted No growth Home Meds Active Spironolactone 50 Mg Tablet 50 Mg PO DAILY 30 Days Lasix (Furosemide) 20 Mg Tablet 20 Mg PO DAILY 30 Days Assessment/Pt Instructions See instructions Discharge Planning: >30 minutes discharge planning Discharge Instructions Discharge Diet: Low Sodium Diet Activity as Tolerated: Yes Consultations Surgery Discharge Physical Examination Vital Signs Vital Signs Date Time Temp Pulse Resp B/P (MAP) Pulse Ox O2 Delivery O2 Flow Rate FiO2 09/27/22 13:00 97 09/27/22 12:00 98 Room Air 09/27/22 12:00 16 91/70 (77) 09/27/22 11:26 36.1 09/26/22 08:19 0.00 09/26/22 00:08 21 General Appearance: No Apparent Distress, Thin Respiratory: Lungs Clear, No Respiratory Distress Cardiovascular: Regular Rate, Rhythm, No Murmur Gastrointestinal: Normal Bowel Sounds, Soft, Distended Extremity: Normal Inspection, Pedal Edema Skin: Normal Color, Warm/Dry Neurologic/Psychiatric: Alert, Normal Mood/Affect Allergies: Coded Allergies: No Known Drug Allergies (Unverified , 08/23/18) Copy Copies To 1: [facility] [place] Summary Date of Admission Sep 25, 2022 at 22:40 Date of Discharge Discharge Date: Sep 27, 2022 Discharge Time: 16:05 Admission Diagnosis Decompensated alcoholic cirrhosis Consults/Procedures Consulations Surgery Procedures Paracentesis Discharge Diagnosis (1) Alcoholic liver disease Status: Acute (2) Ascites due to alcoholic cirrhosis (3) Alcohol abuse (4) Mass of head of pancreas (5) Anemia due to alcoholism GARFIELD ELAM MD Sep 27, 2022 16:09
[2022-09-27] MEDS: PANTOPRAZOLE 40 MG (PROTONIX) TAB PO SCH (21:21)
[2022-09-28] MEDS: CEFEPIME INJECTION 1,000 MG in NS (IVPB) 50 ML IV SCH ×2 (03:23→10:02)
[2022-09-28 04:08] LABS: HEMATOCRIT 30 % (40-54); HEMOGLOBIN 9.1 g/dL (13.3-17.7); MEAN CORPUSCULAR HEMOGLOBIN 25 pg (25-34); MEAN CORPUSCULAR HGB CONC 31 g/dL (32-36); MEAN CORPUSCULAR VOLUME 81 fL (80-99); MEAN PLATELET VOLUME 9.5 fL (9.0-12.2); PLATELET COUNT 199 10^3/uL (130-400); WHITE BLOOD COUNT 9.3 10^3/uL (4.3-11.0)
[2022-09-28 04:23] LABS: POTASSIUM 3.5 MMOL/L (3.6-5.0)
[2022-09-28 04:24] LABS: CALCIUM 7.3 MG/DL (8.5-10.1)
[2022-09-28 04:29] LABS: CREATININE SERUM 0.62 MG/DL (0.60-1.30)
[2022-09-28 04:31] LABS: MAGNESIUM 2.2 MG/DL (1.6-2.4)
[2022-09-28] MEDS: MAGNESIUM 1 GM/100 ML IVPB 100 ML IV SCH (04:40)
[2022-09-28] MEDS: POTASSIUM CL 10MEQ/50ML IVPB 50 ML IV SCH (04:40)
[2022-09-28] MEDS: KCL 20 MEQ TAB (K-DUR) PO SCH (04:41)
[2022-09-28] MEDS: THIAMINE 100 MG (VITAMIN B-1) TAB PO SCH (05:37)
[2022-09-28] MEDS: NS IV 1000 ML 1,000 ML IV SCH (05:40)
[2022-09-28] MEDS ORDERED: KCL 20 MEQ TAB (K-DUR) PO ONE (07:00)
[2022-09-28] MEDS: NICOTINE 14 MG (NICODERM) PATCH TD SCH (08:42)
[2022-09-28] MEDS: FOLIC ACID 1 MG TAB PO SCH (08:42)
[2022-09-28] MEDS: MAGNESIUM OXIDE (MAG-OX)400 MG TAB PO SCH (08:42)
[2022-09-28] MEDS: PANTOPRAZOLE 40 MG (PROTONIX) TAB PO SCH (08:42)
[2022-09-28] MEDS ORDERED: FUROSEMIDE 20 MG (LASIX) TAB PO SCH (09:00)
[2022-09-28] MEDS ORDERED: SPIRONOLACTONE 100 MG (ALDACTONE) TABLET PO SCH (09:00)
--- NOTE | 2022-09-28 15:47 | Progress Note - Surgery ---
Subjective Date Seen by a Provider: Sep 28, 2022 Time Seen by a Provider: 12:35 Subjective/Events-last exam Having ascites drain from puncture site of paracentesis. Has ostomy appliance on to control drainage. Patient other lau has no other complaints. No significant discomfort. Planning on discharging home today. Denies n/v fever sweats chills shortness of breath or chest pain. Focused Exam Lactate Level 09/25/22 17:50: Lactic Acid Level 3.83*H 09/25/22 19:52: Lactic Acid Level 2.62*H 09/25/22 21:40: Lactic Acid Level 2.29*H Objective Exam Vital Signs Date Time Temp Pulse Resp B/P (MAP) Pulse Ox O2 Delivery O2 Flow Rate FiO2 09/28/22 13:00 96 09/28/22 11:35 36.6 90 18 90/69 (76) 99 Room Air 09/28/22 09:00 98 Room Air 09/28/22 08:00 36.5 92 18 86/69 (75) 98 Room Air 09/28/22 07:00 87 09/28/22 03:20 36.4 95 18 96/71 (79) 98 Room Air 09/28/22 01:40 97 09/27/22 23:00 36.4 94 17 89/64 (72) 96 Room Air 09/27/22 19:45 98 Room Air 09/27/22 19:38 97 18 95/76 (82) 98 Room Air 09/27/22 19:38 36.7 100 16 92/68 (76) 98 Room Air 09/27/22 19:15 93 09/27/22 17:00 92 16 92/67 (75) 96 Room Air 09/27/22 16:10 98 Room Air 09/27/22 16:00 92 16 98/78 (85) 98 Room Air I & O 09/28/22 07:00 Intake Total 2220 ml Output Total 2126 ml Balance 94 ml Capillary Refill : NONE General Appearance: No Apparent Distress, Thin HEENT: PERRL/EOMI, Normal ENT Inspection Neck: Normal Inspection, Non Tender Respiratory: Chest Non Tender, No Accessory Muscle Use, No Respiratory Distress Cardiovascular: Regular Rate, Rhythm, No JVD Gastrointestinal: non tender, no pulsatile mass, distended (minimal) Extremity: Normal Inspection, Non Tender, Pedal Edema Neurologic/Psychiatric: Alert, Oriented x3, Normal Mood/Affect Skin: Normal Color, Warm/Dry Lymphatic: No Adenopathy Results Lab Laboratory Tests 09/28/22 03:37: White Blood Count 9.3, Red Blood Count 3.65L, Hemoglobin 9.1L, Hematocrit 30L, Mean Corpuscular Volume 81, Mean Corpuscular Hemoglobin 25, Mean Corpuscular Hemoglobin Concent 31L, Red Cell Distribution Width 18.5H, Platelet Count 199, Mean Platelet Volume 9.5, Sodium Level 133L, Potassium Level 3.5L, Chloride Level 105, Carbon Dioxide Level 22, Anion Gap 6, Blood Urea Nitrogen 4L, Creatinine 0.62, Estimat Glomerular Filtration Rate 116, BUN/Creatinine Ratio 6, Glucose Level 118H, Calcium Level 7.3L, Magnesium Level 2.2 Microbiology 09/26/22 Gram Stain - Final, Resulted 09/26/22 Body Fluid Culture - Preliminary, Resulted No growth 09/25/22 Blood Culture - Preliminary, Resulted No growth Assessment/Plan Assessment/Plan Assessment/Plan liver cirrhosis alcohol dependence symptomatic ascites anemia abnormal ct abdomen/pelvis with questionable pancreatic head lesion Hgb improved to 9.1 paracentesis he tolerated fluid was sent for analysis- labs and cytology Would consider MRI pancreas in short term. Anemia- consider endoscopy in near future Draining ascites from puncture site of paracentesis, keep ostomy appliance on for management of drainage. VERENA SHELTON DO Sep 28, 2022 15:47
== END 2022-09-28 17:05 | disposition home or self-care (01) | DRG 433 ==
LOC: EDUNIT# 17:16 → ER FS 17:18 → ICU 22:40
PROVIDERS: ADMIT Family Medicine; ATTEND Internal Medicine
PROC: 0W9G3ZZ Drainage of Peritoneal Cavity, Percutaneous Approach (ICD-10-PCS; principal; 2022-09-26)
DX: K70.31 Alcoholic cirrhosis of liver with ascites (principal); E87.20 Acidosis, unspecified; E86.0 Dehydration; Y90.6 Blood alcohol level of 120-199 mg/100 ml; E87.6 Hypokalemia; D64.9 Anemia, unspecified; F10.20 Alcohol dependence, uncomplicated; D63.8 Anemia in other chronic diseases classified elsewhere; K86.9 Disease of pancreas, unspecified; Z79.2 Long term (current) use of antibiotics; Z79.899 Other long term (current) drug therapy; Z79.1 Long term (current) use of non-steroidal anti-inflammatories (NSAID)
CPT/HCPCS: 36415; 71045; 74177; 80048; 80053; 80306; 80320; 81000; 82140; 82728; 82945; 82947; 83540; 83550; 83605; 83690; 83735; 83880; 84157; 84484; 85014; 85018; 85025; 85027; 85610; 85730; 86850; 86900; 86901; 86920; 87040; 87070; 87205; 87389; 89051; 93306; 94664; Q9967

== ENCOUNTER 2022-10-04 13:32 | Emergency (ER) | payer SELFPAY ==
[~2022-10-04] VITALS: Ht 175 cm; Wt 60.0 kg
[~2022-10-04 13:32] MED LIST changes: +FURO-125 PO; +SPIR50TA4 PO
[2022-10-04 13:53] VITALS: BP 113/75
[2022-10-04 13:58] LABS: BASOPHILS # (AUTO) 0.1 10^3/uL (0.0-0.1); BASOPHILS % (AUTO) 1 % (0-10); EOSINOPHILS # (AUTO) 0.1 10^3/uL (0.0-0.3); EOSINOPHILS % (AUTO) 1 % (0-10); HEMATOCRIT 28 % (40-54); HEMOGLOBIN 8.5 g/dL (13.3-17.7); LYMPHOCYTES # (AUTO) 2.6 10^3/uL (1.0-4.0); LYMPHOCYTES % (AUTO) 29 % (12-44); MEAN CORPUSCULAR HEMOGLOBIN 25 pg (25-34); MEAN CORPUSCULAR HGB CONC 31 g/dL (32-36); MEAN CORPUSCULAR VOLUME 80 fL (80-99); MEAN PLATELET VOLUME 9.9 fL (9.0-12.2); MONOCYTES # (AUTO) 0.6 10^3/uL (0.0-1.0); MONOCYTES % (AUTO) 7 % (0-12); NEUTROPHILS # (AUTO) 5.4 10^3/uL (1.8-7.8); NEUTROPHILS % (AUTO) 62 % (42-75); PLATELET COUNT 205 10^3/uL (130-400); WHITE BLOOD COUNT 8.8 10^3/uL (4.3-11.0)
[2022-10-04 13:59] LABS: CLARITY,URINE CLEAR; GLUCOSE, URINE (UA) TRACE (NEGATIVE); KETONES,URINE NEGATIVE (NEGATIVE); LEUKOCYTE ESTERASE ,URINE NEGATIVE (NEGATIVE); NITRITE,URINE NEGATIVE (NEGATIVE); PROTEIN,URINE TRACE (NEGATIVE)
[2022-10-04 14:08] LABS: BACTERIA,URINE NEGATIVE /HPF; BILIRUBIN,URINE 1+ (NEGATIVE); COLOR,URINE DARK YELLOW; SQUAMOUS EPITHELIAL CELL,UR RARE /HPF
[2022-10-04 14:09] LABS: CALCIUM OXALATE CRYSTALS,UR FEW /LPF
[2022-10-04 14:11] LABS: INR 1.1 (0.8-1.4); PROTHROMBIN TIME PATIENT 14.7 SEC (12.2-14.7)
[2022-10-04 14:12] LABS: BILIRUBIN,TOTAL 1.6 MG/DL (0.1-1.0); CALCIUM 8.5 MG/DL (8.5-10.1); CREATININE SERUM 0.58 MG/DL (0.60-1.30); POTASSIUM 2.8 MMOL/L (3.6-5.0); TOTAL PROTEIN 6.2 GM/DL (6.4-8.2)
--- NOTE | 2022-10-04 14:12 | ED Abdominal Pain ---
General Chief Complaint: General Problems/Pain Stated Complaint: ABD SWELLING Nursing Triage Note: Patient has presented to ER with cc of abd distension and cramping. He reports that he just had fluid drained from his abd last week in [place]. The last few days he is not getting any more draiange from the "hole" in his stomach and he feels more distended. Source of Information: Patient, EMS, EMS Notes Reviewed, RN Notes Reviewed Exam Limitations: No Limitations History of Present Illness Date Seen by Provider: Oct 04, 2022 Time Seen by Provider: 13:28 Initial Comments 52-year-old male patient with history of alcoholic cirrhosis and ascites was admitted at [facility] [place] on September 25 and had paracentesis with removal of 10-12 liters of ascites fluid and was discharged home on September 28 with a colostomy bag on the place of paracentesis. Patient stated he had some drainage for the first few days but for the last 4 days did not have any drainage of the paracentesis area. Patient complaining of gradually increasing lumbar pain and distention for the last 4 days and rated his abdominal pain 7/10. Patient complaining of nausea and stated he had 2 episodes of vomiting few nights ago but denies anorexia and he stated he had a very good appetite and ate and drink liquid and food. Patient states he had 1 bowel movement 2 days ago and denies diarrhea. Patient complaining of decrease of urine output. Patient stated he has stopped drinking alcohol since his admission. Patient had appointment with his physician today but did not have a ride to go to his appointment. Patient has another appointment tomorrow. Allergies and Home Medications Allergies Coded Allergies: No Known Drug Allergies (Unverified , 08/23/18) Patient Home Medication List Home Medication List Reviewed: Yes Furosemide (Lasix) 20 Mg Tablet, 20 MG PO DAILY Prescribed by: GARFIELD ELAM on 09/27/22 0941 Potassium Chloride (K-Tab ER) 20 Meq Tablet.er, 20 MEQ PO BID Prescribed by: Haley coronel on 10/04/22 1536 Spironolactone (Spironolactone) 50 Mg Tablet, 50 MG PO DAILY Prescribed by: GARFIELD ELAM on 09/27/22 0941 Review of Systems Review of Systems Constitutional: see HPI EENTM: No Symptoms Reported Respiratory: See HPI Cardiovascular: No Symptoms Reported Gastrointestinal: See HPI Genitourinary: See HPI Musculoskeletal: no symptoms reported Skin: no symptoms reported Psychiatric/Neurological: No Symptoms Reported Endocrine: No Symptoms Reported Hematologic/Lymphatic: No Symptoms Reported All Other Systems Reviewed Negative Unless Noted: Yes Past Hhlrlaf-Qulsyf-Bshnxj Hx Patient Social History Tobacco Use?: Yes Tobacco type used: Cigarettes Substance use?: Yes Substance type: Marijuana Alcohol Use?: Yes Alcohol type: Beer Immunizations Up To Date Tetanus Booster (TDap): Unknown Seasonal Allergies Seasonal Allergies: No Past Medical History Surgery/Hospitalization HX: GASTRITIS AND ALCOHOLISM Surgeries: No Respiratory: No Cardiac: No Neurological: No Genitourinary: No Gastrointestinal: No Musculoskeletal: No Endocrine: No HEENT: No Cancer: No Psychosocial: No Suicide Attempts Integumentary: No Blood Disorders: No Family Medical History No Pertinent Family Hx Physical Exam Vital Signs Vital Signs - First Documented 10/04/22 13:53 Temp 36.9 Pulse 93 Resp 20 B/P (MAP) 113/75 (88) Pulse Ox 100 O2 Delivery Room Air Capillary Refill : Height/Weight/BMI Height: 5'9.00" Weight: 147lbs. 6.4oz. 66.357757ze; 19.00 BMI Method:Stated General Appearance: mild distress HEENT: PERRL/EOMI, pharynx normal, pale conjunctivae (R), pale conjunctivae (L) Neck: non-tender Respiratory: chest non-tender, lungs clear, normal breath sounds, no r espiratory distress Cardiovascular: regular rate, rhythm, no edema, no gallop Gastrointestinal: normal bowel sounds, non tender, soft, distended (Moderately with fluid) Extremities: normal range of motion, non-tender Back: normal inspection Skin: pallor Lymphatic: no adenopathy Progress/Results/Core Measures Results/Orders Lab Results Laboratory Tests Test 10/04/22 13:35 10/04/22 13:54 Range/Units White Blood Count 8.8 4.3-11.0 10^3/uL Red Blood Count 3.47 L 4.30-5.52 10^6/uL Hemoglobin 8.5 L 13.3-17.7 g/dL Hematocrit 28 L 40-54 % Mean Corpuscular Volume 80 80-99 fL Mean Corpuscular Hemoglobin 25 25-34 pg Mean Corpuscular Hemoglobin Concent 31 L 32-36 g/dL Red Cell Distribution Width 20.2 H 10.0-14.5 % Platelet Count 205 130-400 10^3/uL Mean Platelet Volume 9.9 9.0-12.2 fL Immature Granulocyte % (Auto) 0 % Neutrophils (%) (Auto) 62 42-75 % Lymphocytes (%) (Auto) 29 12-44 % Monocytes (%) (Auto) 7 0-12 % Eosinophils (%) (Auto) 1 0-10 % Basophils (%) (Auto) 1 0-10 % Neutrophils # (Auto) 5.4 1.8-7.8 10^3/uL Lymphocytes # (Auto) 2.6 1.0-4.0 10^3/uL Monocytes # (Auto) 0.6 0.0-1.0 10^3/uL Eosinophils # (Auto) 0.1 0.0-0.3 10^3/uL Basophils # (Auto) 0.1 0.0-0.1 10^3/uL Immature Granulocyte # (Auto) 0.0 0.0-0.1 10^3/uL Prothrombin Time 14.7 12.2-14.7 SEC INR Comment 1.1 0.8-1.4 Activated Partial Thromboplast Time 34 24-35 SEC Sodium Level 134 L 135-145 MMOL/L Potassium Level 2.8 L 3.6-5.0 MMOL/L Chloride Level 99 98-107 MMOL/L Carbon Dioxide Level 22 21-32 MMOL/L Anion Gap 13 5-14 MMOL/L Blood Urea Nitrogen 9 7-18 MG/DL Creatinine 0.58 L 0.60-1.30 MG/DL Estimat Glomerular Filtration Rate 119 BUN/Creatinine Ratio 16 Glucose Level 137 H 70-105 MG/DL Calcium Level 8.5 8.5-10.1 MG/DL Corrected Calcium 9.6 8.5-10.1 MG/DL Total Bilirubin 1.6 H 0.1-1.0 MG/DL Aspartate Amino Transf (AST/SGOT) 47 H 5-34 U/L Alanine Aminotransferase (ALT/SGPT) 22 0-55 U/L Alkaline Phosphatase 242 H 40-136 U/L Total Protein 6.2 L 6.4-8.2 GM/DL Albumin 2.6 L 3.2-4.5 GM/DL Lipase 31 8-78 U/L Urine Color DARK YELLOW Urine Clarity CLEAR Urine pH 6.0 5-9 Urine Specific [place] >=1.030 1.016-1.022 Urine Protein TRACE H NEGATIVE Urine Glucose (UA) TRACE H NEGATIVE Urine Ketones NEGATIVE NEGATIVE Urine Nitrite NEGATIVE NEGATIVE Urine Bilirubin 1+ H NEGATIVE Urine Urobilinogen 1.0 < = 1.0 MG/DL Urine Leukocyte Esterase NEGATIVE NEGATIVE Urine RBC (Auto) NEGATIVE NEGATIVE Urine RBC NONE /HPF Urine WBC 5-10 H /HPF Urine Squamous Epithelial Cells RARE /HPF Urine Crystals PRESENT H /LPF Urine Calcium Oxalate Crystals FEW H /LPF Urine Bacteria NEGATIVE /HPF Urine Casts NONE /LPF Urine Mucus LARGE H /LPF Urine Culture Indicated NO My Orders Orders - HALEY CORONEL MD Comprehensive Metabolic Panel (10/04/22 13:41) Lipase (10/04/22 13:41) Ua Culture If Indicated (10/04/22 13:41) Cbc With Automated Diff (10/04/22 13:41) Protime With Inr (10/04/22 13:41) Partial Thromboplastin Time (10/04/22 13:41) Ct Abdomen/Pelvis Wo (10/04/22 13:53) Potassium Chloride (Tablet) (K Dur Table (10/04/22 14:30) Potassium Cl 10meq/50ml Ivpb (Kcl 10 Meq (10/04/22 14:30) Medications Given in ED Current Medications Medications Dose Ordered Sig/Yue Route Start Time Stop Time Status Last Admin Dose Admin Potassium Chloride 40 meq ONCE ONCE PO 10/04/22 14:30 10/04/22 14:31 DC 10/04/22 14:31 40 MEQ Potassium Chloride 50 ml @ 50 mls/hr ONCE ONCE IV 10/04/22 14:30 10/04/22 15:29 DC 10/04/22 14:31 50 MLS/HR Vital Signs/I&O 10/04/22 13:53 Temp 36.9 Pulse 93 Resp 20 B/P (MAP) 113/75 (88) Pulse Ox 100 O2 Delivery Room Air Blood Pressure Mean: 88 Progress Progress Note : Progress Note 52-year-old male patient with history of alcoholic cirrhosis and ascites and recent hospitalization with paracentesis brought in by EMS because of abdominal pain and issue with area of paracentesis. Patient had a colostomy bag at paracentesis area without having any drainage for the last 3 to 4 days and was concern for not having any drainage. Exam showed healed area and colostomy bag was removed and dressing was applied. Patient had moderate ascites without tenderness and had mild pallor. CBC, CMP, lipase, UA, coag panel was ordered and reviewed by me and showed normal white count and platelet with hemoglobin of 8.5 and elevation of liver function test. Patient had potassium of 2.8 and treated with IV and oral potassium. Patient currently takes Lasix and Aldactone without supplemental of potassium and prescription for potassium for 1 week was given. Patient has appointment with his primary care physician tomorrow for es tablishing a care and was advised to follow-up with his appointment and not missing his appointment as he did today with another provider. CT abdomen pelvis ordered and the result was reviewed by me and showed ascites with abnormal pancreas that was seen in the previous CT that was already addressed by hospitalist in his recent hospitalization. Patient informed about all test re sults and plan of care and is to follow-up and return to ER as needed. Diagnostic Imaging Diagonstic Imaging: CT Plain Films/CT/US/NM/MRI: abdomen Comments CT abdomen pelvis interpreted by radiologist and reviewed by me and showed: [facility] [place] NAME: LALO CALDERÓN [facility] REC#: [id number] PT STATUS: REG ER : 1970 PHYSICIAN: HALEY CORONEL MD ADMIT DATE: 10/04/22/ER FS Draft Date of Exam:10/04/22 CT ABDOMEN/PELVIS WO PROCEDURE: CT abdomen and pelvis without contrast. TECHNIQUE: Multiple contiguous axial images were obtained through the abdomen and pelvis without the use of intravenous contrast. Auto Exposure Controls were utilized during the CT exam to meet ALARA standards for radiation dose reduction. INDICATION: Cirrhosis and abdominal distention. COMPARISON: 09/25/2022. FINDINGS: Note is made of mild patchy density in the left lateral costophrenic sulcus which likely represents atelectasis or possible pneumonitis. There is large amount of ascites present. There is nodular surface contour to the liver, indicating cirrhosis without significant volume loss. There is no significant splenomegaly. Note is made of mild hiatal hernia. No definite gallbladder, adrenal gland or renal abnormality is seen apart from minimal punctate nonobstructing calculus in the upper pole of right kidney. There is a persistent possible fluid-containing mass-like structure at the pancreatic head which may be mildly increased in size compared to the previous study. There is moderate aortoiliac atherosclerotic calcification. Mildly prominent mesenteric lymph nodes are noted without evidence of pathologically enlarged adenopathy. Urinary bladder is unopacified and largely decompressed which limits evaluation. IMPRESSION: Findings are compatible with background hepatic cirrhosis and large amount of ascites. There is also prominence of distal esophagus with small hiatal hernia. Esophageal varices cannot be excluded. There is a persistent relatively low-density focus at the pancreatic head measuring 1.5 x 2.0 cm on the current study. This could represent cystic lesion versus focal ductal dilatation. This could be better evaluated on contrast-enhanced examination or possible MRCP, if warranted. Consideration could also be given to diagnostic paracentesis for further evaluation. Dictated on workstation # [id number] Dict: 10/04/22 1427 Trans: 10/04/22 1440 [id number] Interpreted by: LALO STUBBS MD Electronically signed by: Critical Care Note Critical Care Total Time (minutes) 60 Departure Impression Primary Impression: Ascites due to alcoholic cirrhosis Additional Impressions: Chronic hypokalemia Chronic anemia Chronic abdominal pain Elevated liver enzymes Hypoalbuminemia Pancreatic mass Disposition: 01 HOME, SELF-CARE Condition: Improved Departure-Patient Inst. Decision time for Depature: 15:32 Referrals: NO,LOCAL PHYSICIAN (PCP/Family) Primary Care Physician Patient Instructions: Abdominal Pain, Adult ED, Alcohol Use Disorder ED, Cirrhosis, Diet for Cirrhosis, Fluid in the Belly (Ascites) (DC), Hypokalemia Add. Discharge Instructions: Follow-up with your appointment with primary care physician tomorrow Continue home medication Return to ER as needed All discharge instructions reviewed with patient and/or family. Voiced understanding. Scripts Potassium Chloride (K-Tab ER) 20 Meq Tablet.er 20 MEQ PO BID for 7 Days, #14 TAB Prov: HALEY CORONEL MD 10/04/22 HALEY CORONEL MD Oct 04, 2022 14:12
[2022-10-04 14:13] LABS: ALBUMIN 2.6 GM/DL (3.2-4.5)
[2022-10-04] MEDS ORDERED: KCL 20 MEQ TAB (K-DUR) PO ONE (14:30)
[2022-10-04] MEDS ORDERED: POTASSIUM CL 10MEQ/50ML IVPB 50 ML IV ONE (14:30)
--- NOTE | 2022-10-04 14:40 | Diagnostic Imaging Report ---
PROCEDURE: CT abdomen and pelvis without contrast. TECHNIQUE: Multiple contiguous axial images were obtained through the abdomen and pelvis without the use of intravenous contrast. Auto Exposure Controls were utilized during the CT exam to meet ALARA standards for radiation dose reduction. INDICATION: Cirrhosis and abdominal distention. COMPARISON: 09/25/2022. FINDINGS: Note is made of mild patchy density in the left lateral costophrenic sulcus which likely represents atelectasis or possible pneumonitis. There is large amount of ascites present. There is nodular surface contour to the liver, indicating cirrhosis without significant volume loss. There is no significant splenomegaly. Note is made of mild hiatal hernia. No definite gallbladder, adrenal gland or renal abnormality is seen apart from minimal punctate nonobstructing calculus in the upper pole of right kidney. There is a persistent possible fluid-containing mass-like structure at the pancreatic head which may be mildly increased in size compared to the previous study. There is moderate aortoiliac atherosclerotic calcification. Mildly prominent mesenteric lymph nodes are noted without evidence of pathologically enlarged adenopathy. Urinary bladder is unopacified and largely decompressed which limits evaluation. IMPRESSION: Findings are compatible with background hepatic cirrhosis and large amount of ascites. There is also prominence of distal esophagus with small hiatal hernia. Esophageal varices cannot be excluded. There is a persistent relatively low-density focus at the pancreatic head measuring 1.5 x 2.0 cm on the current study. This could represent cystic lesion versus focal ductal dilatation. This could be better evaluated on contrast-enhanced examination or possible MRCP, if warranted. Consideration could also be given to diagnostic paracentesis for further evaluation. Dictated by: Dictated on workstation # [id number]
[2022-10-04] MEDS ORDERED: POTA-53 PO (15:36)
== END 2022-10-04 15:40 | disposition home or self-care (01) ==
LOC: EDUNIT# 13:32 → ER FS 13:33
DX: K70.31 Alcoholic cirrhosis of liver with ascites (principal); E87.6 Hypokalemia; D64.9 Anemia, unspecified; K86.89 Other specified diseases of pancreas; E88.09 Other disorders of plasma-protein metabolism, not elsewhere classified; G89.29 Other chronic pain; F17.210 Nicotine dependence, cigarettes, uncomplicated; Z28.310 Unvaccinated for COVID-19
CPT/HCPCS: 36415; 74176; 80053; 81000; 83690; 85025; 85610; 85730

== ENCOUNTER → 2022-11-19 | Outpatient (CLI) | payer OTHER ==
[~2022-11-19] VITALS: Ht 175.3 cm; Wt 60.0 kg
[~2022-11-19] MED LIST changes: +ALBUMIN 25% 25 GM/100 ML 100 ML IV ONE; +POTA-53 PO
[2022-11-19 08:35] VITALS: BP 106/77
[2022-11-19 10:59] LABS: BODY FLUID RBC COUNT 0.001 10^6/uL; BODY FLUID WBC TOTAL COUNT 0.058 10^3/uL
[2022-11-19 11:00] VITALS: BP 106/77
[2022-11-19 11:15] LABS: GLUCOSE,BODY FLUID 104 MG/DL; TOTAL PROTEIN,BODY FLUID 1.6 G/DL
[2022-11-19 11:32] LABS: BODY FLUID APPEARENCE CLEAR; BODY FLUID COLOR YELLOW
[2022-11-19 11:34] LABS: BODY FLUID SOURCE PERITON
--- NOTE | 2022-11-19 19:17 | OPERATIVE REPORT ---
DATE OF SERVICE: 11/19/2022 PREOPERATIVE DIAGNOSIS: Symptomatic ascites. POSTOPERATIVE DIAGNOSES: Symptomatic ascites. PROCEDURE: Ultrasound-guided paracentesis. SURGEON: Verena Matos DO ANESTHESIA: 1% lidocaine, 3 mL COMPLICATIONS: None. INDICATIONS: The patient is a 52-year-old male with symptomatic ascites. He understands risks and benefits of procedure and wishes to proceed. Consent was signed in chart. DESCRIPTION OF PROCEDURE: The patient was in the procedure room and placed in a supine position. Ultrasound was used to isolate the largest pocket of fluid. The area was prepped and draped in sterile fashion. Timeout was performed. Local anesthetic was infiltrated. An 11 blade scalpel was used to make a small skin incision. The [id number] needle and catheter were then advanced through the abdominal wall until straw-colored fluid was withdrawn. The catheter was then advanced and the needle was removed. A total of 9300 mL of straw-colored fluid was withdrawn. The catheter was then removed and sterile bandage was applied. The patient tolerated the procedure well without any complications. Job ID: [id number] DocumentID: [id number] Dictated Date: 11/19/2022 12:29:31 Wet Process Technician Date: 11/19/2022 19:15:00 Dictated By: VERENA MATOS DO
== END ==
LOC: SDC 08:15
PROVIDERS: ATTEND Surgery
DX: R18.8 Other ascites (principal); Z28.310 Unvaccinated for COVID-19
CPT/HCPCS: 49083; 82945; 84157; 87070; 87205; 89051; 96365; 96366